=== PATIENT | female | born 1945 | race Caucasian/White ===

== ENCOUNTER 2017-03-17 09:08 | Inpatient (IN) | payer MEDICARE ==
[~2017-03-17] VITALS: Ht 172.7 cm; Wt 86.4 kg
[~2017-03-17 09:08] MED LIST: BUPR150T18 PO; Ciprofloxacin PO; HYDR-3498 PO; LOSA1TAB19 PO; METF500T4 PO; SITA50TA2 PO
[2017-03-17] MEDS ORDERED: VANCOMYCIN 1 GM (PMX) 250 ML IVPB STA (10:32)
[2017-03-17] MEDS ORDERED: PIPER-TAZO 3.375 GM IV (PMX) 100 ML IVPB STA (10:32)
[2017-03-17 11:17] LABS: ADD SCAN DIFF NO
--- NOTE | 2017-03-17 11:25 | RADRPT ---
PROCEDURE: XR Chest. CLINICAL INDICATION: Sepsis TECHNIQUE: Anterior chest x-ray. COMPARISON: None. FINDINGS: Exam is limited due to rotated positioning. The lungs are clear. No pleural effusion identified. There is no evidence of pneumothorax. The cardiomediastinal silhouette is unremarkable. The soft tissues are normal. Osseous structures are unremarkable. IMPRESSION: 1. No acute disease is seen in the chest. RPTAT: QQ .Feliciano Payne MD, MD Date Time Electronically viewed and signed by .Feliciano Payne MD, on 03/17/2017 11:25 .M/
[2017-03-17 11:28] LABS: BASOPHIL # 0.1 10^3/ul (0.0-0.1); BASOPHILS % 0.5 % (0.0-2.0); EOSINOPHILS # 0.2 10^3/ul (0.0-0.5); EOSINOPHILS % 1.6 % (0.0-7.0); HEMATOCRIT 34.4 % (37.0-47.0); HEMOGLOBIN 11.1 g/dl (12.0-16.0); LYMPHOCYTES # 0.9 10^3/ul (0.8-2.9); LYMPHOCYTES % 8.3 % (15.0-51.0); MEAN CORPUSCULAR HGB CONC 32.3 g/dl (32.0-37.0); MEAN CORPUSCULAR VOLUME 86.6 fl (82.0-101.0); MEAN PLATELET VOLUME 12.2 fl (7.4-10.4); MONOCYTE # 1.1 10^3/ul (0.3-0.9); MONOCYTES % 10.1 % (0.0-11.0); NEUTROPHIL # 8.8 10^3/ul (1.6-7.5); NEUTROPHILS % 79.1 % (39.0-77.0); PLATELET COUNT 174 10^3/UL (140-415); RED BLOOD COUNT 3.97 10^6/ul (4.20-5.40); RED CELL DISTRIBUTION WIDTH 13.1 % (11.5-14.5); WHITE BLOOD COUNT 11.2 10^3/ul (4.8-10.8)
[2017-03-17 11:29] LABS: ALBUMIN 4.3 g/dl (3.3-4.9); CHLORIDE 102 mmol/L (97-110); SODIUM 141 mmol/L (135-144)
[2017-03-17 11:30] LABS: POTASSIUM 3.8 mmol/L (3.5-5.1)
[2017-03-17 11:32] LABS: ALANINE AMINOTRANSFERASE 26 IU/L (13-69); ALBUMIN/GLOBULIN RATIO 1.22; ALKALINE PHOSPHATASE 90 IU/L (42-121); ANION GAP 17 (8-16); ASPARTATE AMINO TRANSFERASE 20 IU/L (15-46); BILIRUBIN,INDIRECT 0.4 mg/dl (0-1.1); BILIRUBIN,TOTAL 0.4 mg/dl (0.2-1.3); BLOOD UREA NITROGEN 19 mg/dl (7-20); CARBON DIOXIDE 26 mmol/L (21-31); CREATININE 0.98 mg/dl (0.44-1.00); TOTAL PROTEIN 7.8 g/dl (6.1-8.1)
[2017-03-17 11:32] LABS: INR 1.03; PROTIME 13.5 Sec (12.2-14.2); PT RATIO 1.1
[2017-03-17 11:33] LABS: CALCIUM 10.2 mg/dl (8.4-10.2); GLUCOSE 179 mg/dl (70-220)
[2017-03-17 11:33] LABS: PARTIAL THROMBOPLASTIN TIME 39.7 Sec (25.0-35.0)
--- NOTE | 2017-03-17 11:34 | RADRPT ---
PROCEDURE: XR Foot. CLINICAL INDICATION: Infection TECHNIQUE: Three views of the left foot are available for review. COMPARISON: None available FINDINGS: No evidence of fracture. Hallux valgus deformity is noted. There is marked subluxation or dislocation at the second and third metatarsal phalangeal joints. There is bone destruction in the first through third tarsometatarsal joints with joint space narrowi ng and irregularity of the articular surfaces. Considerations include inflammatory or septic arthri tis. Mild degenerative change in the tarsal joints. Bony mineralization is normal. No soft tissue swelling over the dorsum of the forefoot. No radiopaque foreign body is identified. IMPRESSION: 1. 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 2. Moderate soft tissue swelling over the dorsum of the forefoot. 3. Hallux valgus deformity. 4. Advanced subluxation or dislocation of the left second and third metatarsal phalangeal joints. 5. Mild degenerative changes in the tarsal joints. 6. Small inferior calcaneal osteophyte. RPTAT: QQ .Feliciano Payne MD, Date Time Electronically viewed and signed by .Feliciano Payne MD, on 03/17/2017 11:34 .M/
[2017-03-17 11:49] LABS: TROPONIN-I < 0.012 ng/ml (0.00-0.12)
[2017-03-17] MEDS ORDERED: ONDANSETRON 4 MG INJ IV PRN (12:30)
[2017-03-17] MEDS ORDERED: ACETAMINOPHEN 325 MG TAB PO PRN ×2 (12:30)
[2017-03-17] MEDS ORDERED: ZOLPIDEM 5 MG TAB PO PRN (12:30)
[2017-03-17] MEDS ORDERED: DOCUSATE SODIUM 100 MG CAP PO PRN (12:30)
--- NOTE | 2017-03-17 12:41 | ERA ---
ER Documentation Chief Complaint Date/Time DATE: 03/17/17 TIME: 12:39 Chief Complaint lt 3rd toe diabetic wound HPI Patient is a 71-year-old female with diabetes and high blood pressure who presents with a toe infection. The patient has a left third toe infection which started 2-3 days ago. It has been worsening. The patient has fever and chills as well. She also has diarrhea. The patient has had no treatment as of yet. The patient's primary doctor is Dr. Nick Davis. ROS All systems reviewed and are negative except as per history of present illness. Allergies Allergies: Uncoded Allergies: SULFA (Allergy, Unknown, 03/17/17) PMhx/Soc History of Surgery: Yes (cholecystectomy,hysterectomy) Anesthesia Reaction: No Hx Neurological Disorder: No Hx Respiratory Disorders: No Hx Cardiac Disorders: Yes (htn) Hx Psychiatric Problems: No Hx Miscellaneous Medical Probl: Yes (dm) Hx Alcohol Use: No Hx Substance Use: No Hx Tobacco Use: No FmHx Family History: No diabetes Physical Exam Vitals Vital Signs Date Time Temp Pulse Resp B/P Pulse Ox O2 Delivery O2 Flow Rate FiO2 03/17/17 11:13 Nasal Cannula 03/17/17 09:12 98.2 90 18 150/69 98 Physical Exam Const: No acute distress Head: Atraumatic Eyes: Normal Conjunctiva ENT: Normal External Ears, Nose and Mouth. Neck: Full range of motion..~ No meningismus. Resp: Clear to auscultation bilaterally Cardio: Regular rate and rhythm, no murmurs Abd: Soft, non tender, non distended. Normal bowel sounds Skin: Redness to the left third toe with streaking up the dorsum of the left foot, warmth to touch, sensation is gone as the patient has diabetic neuropathy Back: No midline or flank tenderness Ext: No cyanosis, or edema Neur: Awake and alert Psych: Normal Mood and Affect Result Diagram: 03/17/17 1108 03/17/17 1032 Results 24 hrs Laboratory Tests Test 03/17/17 10:32 03/17/17 11:08 Sodium Level 141mmol/L Potassium Level 3.8mmol/L Chloride Level 102mmol/L Carbon Dioxide Level 26mmol/L Anion Gap 17 Blood Urea Nitrogen 19mg/dl Creatinine 0.98mg/dl Glucose Level 179mg/dl Calcium Level 10.2mg/dl Total Bilirubin 0.4mg/dl Direct Bilirubin 0.00mg/dl Indirect Bilirubin 0.4mg/dl Aspartate Amino Transf (AST/SGOT) 20IU/L Alanine Aminotransferase (ALT/SGPT) 26IU/L Alkaline Phosphatase 90IU/L Troponin I < 0.012ng/ml Total Protein 7.8g/dl Albumin 4.3g/dl Globulin 3.50g/dl Albumin/Globulin Ratio 1.22 White Blood Count 11.210^3/ul Red Blood Count 3.9710^6/ul Hemoglobin 11.1g/dl Hematocrit 34.4% Mean Corpuscular Volume 86.6fl Mean Corpuscular Hemoglobin 28.0pg Mean Corpuscular Hemoglobin Concent 32.3g/dl Red Cell Distribution Width 13.1% Platelet Count 55050^3/UL Mean Platelet Volume 12.2fl Neutrophils % 79.1% Lymphocytes % 8.3% Monocytes % 10.1% Eosinophils % 1.6% Basophils % 0.5% Nucleated Red Blood Cells % 0.0/100WBC Neutrophils # 8.810^3/ul Lymphocytes # 0.910^3/ul Monocytes # 1.110^3/ul Eosinophils # 0.210^3/ul Basophils # 0.110^3/ul Nucleated Red Blood Cells # 0.010^3/ul Prothrombin Time 13.5Sec Prothrombin Time Ratio 1.1 INR International Normalized Ratio 1.03 Activated Partial Thromboplast Time 39.7Sec Current Medications Medications (Trade) Dose Ordered Sig/Tita Route PRN Reason Start Time Stop Time Status Last Admin Dose Admin Vancomycin HCl 250 ml @ 125 mls/hr ONCE STAT IVPB 03/17/17 10:32 03/17/17 12:31 DC 03/17/17 11:12 Piperacillin Sod/ Tazobactam Sod (Zosyn 3.375gm/ 100 ml (Pmx)) 100 ml @ 200 mls/hr ONCE STAT IVPB 03/17/17 10:32 03/17/17 11:01 DC 03/17/17 11:12 Ondansetron HCl (Zofran Inj) 4 mg BRIDGE ORDER PRN IV NAUSEA AND/OR VOMITING 03/17/17 12:30 03/18/17 12:29 Acetaminophen (Tylenol Tab) 650 mg ER BRIDGE PRN PO MILD PAIN/FEVER 03/17/17 12:30 03/18/17 12:29 Ondansetron HCl (Zofran Tab) 4 mg Q6H PRN PO NAUSEA AND/OR VOMITING 03/17/17 12:30 UNV Acetaminophen (Tylenol Tab) 650 mg Q6H PRN PO PAIN LEVEL 1-3 OR FEVER 03/17/17 12:30 Docusate Sodium (Colace) 100 mg Q12H PRN PO CONSTIPATION 03/17/17 12:30 Zolpidem Tartrate (Ambien) 5 mg QHS PRN PO SLEEP 03/17/17 12:30 UNV Enoxaparin Sodium (Lovenox) 40 mg DAILY SC 03/18/17 09:00 Insulin Aspart (Novolog Insulin Pen) NOVOLOG *MILD* ALGORITHM WITH MEALS BEDTIME SC 03/17/17 18:00 Miscellaneous Information (* Miscellaneous Pharmacy Order) HYPOGLYCEMIA PROTOCOL w... ONCE ONCE XX 03/17/17 12:30 03/17/17 12:37 DC Miscellaneous Information (* Miscellaneous Pharmacy Order) Discontinue Glyburide, Glipizide,... ONCE ONCE XX 03/17/17 12:30 03/17/17 12:37 DC Miscellaneous Information Discontinue all previ... ONCE ONCE XX 03/17/17 12:30 03/17/17 12:37 DC Piperacillin Sod/ Tazobactam Sod (Zosyn 3.375gm/ 100 ml (Pmx)) 100 ml @ 200 mls/hr Q6 IVPB 03/17/17 18:00 UNV Procedures/MDM X-ray of the left foot shows skin swelling but no obvious osteomyelitis per radiology. X-ray of the chest is negative per radiology. Patient is a 71-year-old female presents with what appears to be an acute cellulitis of the left third toe with streaking up the foot. At this point I doubt sepsis. The patient will be given vancomycin and Zosyn empirically. There is no obvious sign of osteomyelitis at this time. I spoke with Dr. Booker who is covering for Dr. Davis. The patient will be admitted to a medical surgical bed. I do believe the patient requires inpatient admission for IV antibiotics given her age and diabetes. Departure Diagnosis: Primary Impression: Cellulitis in diabetic foot Condition: CASSIE Saleem MD Mar 17, 2017 12:41
[2017-03-17] MEDS ORDERED: ONDANSETRON 4 MG TAB PO PRN (13:00)
[2017-03-17] MEDS: PIPER-TAZO 3.375 GM IV (PMX) 100 ML IVPB SCH (18:22)
[2017-03-17 20:43] VITALS: BP 159/70; RESP 20
[2017-03-17] MEDS: INSULIN ASPART [NOVOLOG] 3 ML PEN SC SCH (21:00)
[2017-03-17 21:13] VITALS: Ht 172.7 cm; Wt 86.4 kg
[2017-03-17 22:00] VITALS: BP 129/70; PULSE 72
[2017-03-17] MEDS ORDERED: HYDROCODONE/APAP (5/325) TAB PO PRN (22:30)
[2017-03-18] MEDS: PIPER-TAZO 3.375 GM IV (PMX) 100 ML IVPB SCH ×2 (00:42→05:33)
[2017-03-18 05:27] LABS: ADD SCAN DIFF NO
[2017-03-18 05:39] LABS: BASOPHIL # 0.1 10^3/ul (0.0-0.1); BASOPHILS % 0.7 % (0.0-2.0); EOSINOPHILS # 0.4 10^3/ul (0.0-0.5); EOSINOPHILS % 4.2 % (0.0-7.0); HEMATOCRIT 32.1 % (37.0-47.0); HEMOGLOBIN 10.2 g/dl (12.0-16.0); LYMPHOCYTES # 1.5 10^3/ul (0.8-2.9); LYMPHOCYTES % 16.8 % (15.0-51.0); MEAN CORPUSCULAR HEMOGLOBIN 27.4 pg (29.0-33.0); MEAN CORPUSCULAR HGB CONC 31.8 g/dl (32.0-37.0); MEAN CORPUSCULAR VOLUME 86.3 fl (82.0-101.0); MEAN PLATELET VOLUME 12.2 fl (7.4-10.4); MONOCYTE # 0.8 10^3/ul (0.3-0.9); MONOCYTES % 8.7 % (0.0-11.0); NEUTROPHILS % 69.3 % (39.0-77.0); PLATELET COUNT 162 10^3/UL (140-415); RED BLOOD COUNT 3.72 10^6/ul (4.20-5.40); RED CELL DISTRIBUTION WIDTH 13.2 % (11.5-14.5); WHITE BLOOD COUNT 8.7 10^3/ul (4.8-10.8)
[2017-03-18 05:47] LABS: ALBUMIN 3.6 g/dl (3.3-4.9)
[2017-03-18 05:48] LABS: POTASSIUM 3.3 mmol/L (3.5-5.1)
[2017-03-18 05:50] LABS: CREATININE 0.81 mg/dl (0.44-1.00)
[2017-03-18 05:51] LABS: ALBUMIN/GLOBULIN RATIO 1.09; BILIRUBIN,INDIRECT 0.5 mg/dl (0-1.1); BILIRUBIN,TOTAL 0.5 mg/dl (0.2-1.3); CALCIUM 9.4 mg/dl (8.4-10.2); TOTAL PROTEIN 6.9 g/dl (6.1-8.1)
[2017-03-18 07:26] VITALS: BP 122/74; RESP 20
[2017-03-18] MEDS: INSULIN ASPART [NOVOLOG] 3 ML PEN SC SCH (08:00)
[2017-03-18] MEDS ORDERED: ENOXAPARIN 40 MG/0.4 ML SYG SC SCH (09:00)
== END 2017-03-18 08:40 | disposition left against medical advice (07) | DRG 639 ==
LOC: FTE 09:08 → MERGE 12:21 → PP2 12:21
PROVIDERS: ADMIT Internal Medicine; ATTEND Internal Medicine
DX: E11.628 Type 2 diabetes mellitus with other skin complications (principal); E11.40 Type 2 diabetes mellitus with diabetic neuropathy, unspecified; I10 Essential (primary) hypertension; L03.032 Cellulitis of left toe
CPT/HCPCS: 36415; 71010; 80053; 82962; 83036; 84484; 85025; 85610; 85730; 87040; 87070; 93005; 96365; 96366; 96375; 96376; J1650; J2543; J3370

== ENCOUNTER 2017-10-08 14:57 | Inpatient (IN) | payer MEDICARE ==
[~2017-10-08] VITALS: Ht 170.2 cm; Wt 83.2 kg
--- NOTE | 2017-10-08 15:30 | ERD ---
ER Documentation Chief Complaint Chief Complaint LEFT FOOT INFECTION SENT FROM [facility]. HX OF DM HPI This is a 72-year-old female with a history of poorly compliant diabetes, chronic left diabetic foot ulcer with previous issues with cellulitis of the foot who is presenting with 1-2 days of a worsening infection of that foot. She was evaluated by wound care today who wanted her to be admitted for IV antibiotics after the wound was evaluated. The patient has pain and swelling and redness to the foot. She does not endorse any other symptoms. The patient denies feeling sick recently. The patient denies fever or chills. The patient has had no headache or vision changes. The patient does not endorse neck or back pain. The patient denies lightheadedness or dizziness. The patient has had no chest pain or shortness of breath or trouble breathing. The patient denies nausea or vomiting. The patient denies abdominal pain or changes to bowel movements or urination. The patient has had no focal deficits. The patient has had no new weakness or numbness or tingling to the face or extremities. She does endorse decreased sensation to her feet. ROS All systems reviewed and are negative except as per history of present illness. Medications Home Meds Active Scripts [Ciprofloxacin] 500 MG TAB No Conflict Check, 500 MG PO BID@06,18 for 7 Days, TAB Prov:BIBI DAVIS MD- 07/27/15 Reported Medications Hydrocodone Bit-Acetaminophen* ([place]*) 5-325 Mg Tab, 1 TAB PO DAILY Y for SEVERE PAIN LEVEL 7-10, TAB 07/25/15 Bupropion Hcl* (Bupropion Hcl SR*) 150 Mg Tablet.er, 150 MG PO BID, TAB.SA 10/28/14 Metformin Hcl* (Metformin Hcl*) 500 Mg Tablet, 500 MG PO BID, TAB 10/28/14 Sitagliptin* (Januvia*) 50 Mg Tablet, 50 MG PO DAILY, TAB 10/28/14 Losartan-Hydrochlorothiazide (Losartan-HCTZ) 50-12.5 Mg Tab, 1 TAB PO DAILY, TAB 10/28/14 Allergies Allergies: Coded Allergies: Sulfa (Sulfonamide Antibiotics) (Unverified Allergy, Unknown, "Rash, throat closes, joints swollen, vomiting", 07/26/15) re-entered uncoded allergy as coded Uncoded Allergies: SULFA (Allergy, Unknown, rash, throat closes, joints swallon, vomoting, 10/01) PMhx/Soc History of Surgery: Yes (cholecystectomy, hysterectomy, kidney donation) Anesthesia Reaction: No Hx Neurological Disorder: No Hx Respiratory Disorders: No Hx Cardiac Disorders: Yes (HTN) Hx Psychiatric Problems: No Hx Miscellaneous Medical Probl: Yes (DM) Hx Alcohol Use: No Hx Substance Use: No Hx Tobacco Use: No Smoking Status: Never smoker FmHx Family History: diabetes Physical Exam Vitals Vital Signs Date Time Temp Pulse Resp B/P Pulse Ox O2 Delivery O2 Flow Rate FiO2 10/08/17 15:02 99.0 95 18 137/76 99 Physical Exam Const: No apparent distress, well-developed, well-nourished Head: Normocephalic, Atraumatic Eyes: Normal Conjunctiva. Extraocular movements intact. Pupils equal, round and reactive to light ENT: Normal External Ears, Nose and Mouth. Neck: Full range of motion. No meningismus. Resp: Clear to auscultation bilaterally, No wheezes, rales or rhonchi Cardio: Regular rate and rhythm. No murmurs, rubs or gallops Abd: Soft, non tender, non distended. Normal bowel sounds Skin: No petechiae or rashes Back: No midline tenderness. No CVA tenderness Ext: No cyanosis. Diabetic foot ulcer without purulence to the plantar aspect of the right foot just over the first and second MTP joints. Right dorsal pedal edema, erythema, induration without fluctuance or purulence. Neur: Awake and alert, oriented 4. Cranial nerves intact. No facial droop. Normal strength, sensation and coordination. Psych: Normal Mood and Affect Result Diagram: 10/08/17 1540 10/08/17 1540 Results 24 hrs Laboratory Tests Test 10/08/17 15:40 White Blood Count 9.310^3/ul Red Blood Count 4.3310^6/ul Hemoglobin 11.6g/dl Hematocrit 36.0% Mean Corpuscular Volume 83.1fl Mean Corpuscular Hemoglobin 26.8pg Mean Corpuscular Hemoglobin Concent 32.2g/dl Red Cell Distribution Width 13.6% Platelet Count 76791^3/UL Mean Platelet Volume 11.4fl Neutrophils % 75.7% Lymphocytes % 14.0% Monocytes % 6.9% Eosinophils % 2.3% Basophils % 0.6% Nucleated Red Blood Cells % 0.0/100WBC Neutrophils # 7.110^3/ul Lymphocytes # 1.310^3/ul Monocytes # 0.610^3/ul Eosinophils # 0.210^3/ul Basophils # 0.110^3/ul Nucleated Red Blood Cells # 0.010^3/ul Erythrocyte Sedimentation Rate 75mm/Hr Prothrombin Time 12.1Sec Prothrombin Time Ratio 0.9 INR International Normalized Ratio 0.90 Activated Partial Thromboplast Time 41.1Sec Sodium Level 144mmol/L Potassium Level 3.5mmol/L Chloride Level 103mmol/L Carbon Dioxide Level 26mmol/L Anion Gap 19 Blood Urea Nitrogen 27mg/dl Creatinine 1.02mg/dl Glucose Level 141mg/dl Lactic Acid Level 2.4mmol/L Calcium Level 10.2mg/dl Total Bilirubin 0.0mg/dl Direct Bilirubin 0.00mg/dl Indirect Bilirubin 0.0mg/dl Aspartate Amino Transf (AST/SGOT) 21IU/L Alanine Aminotransferase (ALT/SGPT) 28IU/L Alkaline Phosphatase 91IU/L Troponin I < 0.012ng/ml C-Reactive Protein 4.2mg/dl Total Protein 7.6g/dl Albumin 4.3g/dl Globulin 3.30g/dl Albumin/Globulin Ratio 1.30 Current Medications Medications (Trade) Dose Ordered Sig/Tita Route PRN Reason Start Time Stop Time Status Last Admin Dose Admin Sodium Chloride 2170 ml 2,170 ml BOLUS OVER 2 HOURS STAT IV* 10/08/17 17:08 10/08/17 17:10 DC 10/08/17 17:36 Vancomycin HCl 250 ml @ 125 mls/hr ONCE ONCE IVPB 10/08/17 17:30 10/08/17 19:29 Cefepime HCl (Maxipime 1gm/50 ml (Pmx)) 50 ml @ 100 mls/hr ONCE ONCE IVPB 10/08/17 17:30 10/08/17 17:59 10/08/17 17:37 Ondansetron HCl (Zofran Inj) 4 mg BRIDGE ORDER PRN IV NAUSEA AND/OR VOMITING 10/08/17 17:30 10/09/17 17:29 Acetaminophen (Tylenol Tab) 650 mg ER BRIDGE PRN PO MILD PAIN/FEVER 10/08/17 17:30 10/09/17 17:29 Procedures/[facility] MDM The patient's presentation warrants further investigation. The patient does clinically have cellulitis of the foot. She also be evaluated for osteomyelitis as well as a systemic infection. The patient is otherwise well- appearing. LABS The patient's blood work was obtained and reviewed. The patient's CBC shows no leukocytosis and no left shift. The patient is afebrile and does not appear systemically ill. That said, the patient's lactic acid is 2.4 and she does have a heart rate greater than 90. The patient has a history of poorly compliant diabetes and therefore is at risk for an immunodeficient state. I am concerned of a systemic infection. The patient is mildly anemic today, which does not need to be emergently treated. The patient's platelet count is unremarkable. The patient's CMP shows a mild anion gap metabolic acidosis, likely related to her lactic acidosis. The patient does have a mildly elevated creatinine, but this is her baseline. I do not suspect acute kidney injury beyond her chronic kidney disease. Patient does have an elevated ESR and CRP. While this is nonspecific, there is at least some concern for osteomyelitis. IMAGING XR R foot 1. Charcot foot. 2. Subluxation or dislocation of the second and third metatarsal phalangeal joints. 3. No lytic lesion to suggest osteomyelitis. Electronically viewed and signed by .Aric Grullon MD, on 10/08/2017 16:08 TREATMENT/DISPOSITION The patient has findings consistent with a systemic inflammatory response syndrome, and she does have a lactic acid at 2.4, concerning for sepsis. The patient will be treated as such. The patient was given vancomycin and cefepime in the emergency department. She also be given 30 mL/kg of IV fluids. Patient' s infectious symptoms have not stabilized and the patient is at risk of rapid decompensation. The patient will be admitted for careful hydration, antibiotic therapy, and infectious source control. Severe Sepsis criteria: Infectious source: DM Foot ulcer, Cellulitis End organ damage indicated by: Lactate > 2.0 mmol/L Sepsis Management: Time of recognition of sepsis: 1600 Within 3 hours of recognition: Blood cultures x 2 before broad-spectrum antibiotics: YES 30 ml/kg NS bolus: Completed Initial lactate: 2.4 Repeat lactate: Pending Time of recognition of septic shock: No septic shock At this time, I feel that the patient requires admission for further evaluation and management. The patient will be admitted to Dr. Davis in accordance with the patient's insurance. The patient was accepted by Dr. Davis at 5:30 PM on October 08, 2017 to a med/surg floor. The patient's blood pressure was elevated at greater than 120/80 while in the emergency department. This may be further evaluated in the hospital. Third Grade Teacher(s): None in the ER, but may need Orthopedics Outstanding Data: Culture Critical Care: Critical care time 35 minutes excluding all billable procedures Emergent fluid management while maintaining close respiratory support. Provision of immediate and broad-spectrum antibiotic therapy. Simultaneous assessment for possible sources in order to direct targeted therapy. Consideration for invasive and chemical support to prevent cardiopulmonary collapse. Disclaimer: Inadvertent spelling and grammatical errors are likely due to EHR/ dictation software use and do not reflect on the overall quality of patient care. Note that the electronic time recorded on this note does not necessarily reflect the actual time of the patient encounter. Departure Diagnosis: Primary Impression: Cellulitis of foot, right Additional Impressions: Sepsis Sepsis type: sepsis due to unspecified organism Qualified Code: A41.9 - Sepsis, due to unspecified organism Diabetic ulcer of right foot Diabetic foot ulcer location: other Diabetes mellitus type: type 2 Non- pressure ulcer stage: unspecified non-pressure ulcer stage Qualified Code: E11.621 - Diabetic ulcer of other part of right foot associated with type 2 diabetes mellitus, unspecified ulcer stage Condition: Serious TITO POLK MD Oct 08, 2017 15:30
[2017-10-08 15:59] LABS: BASOPHIL # 0.1 10^3/ul (0.0-0.1); BASOPHILS % 0.6 % (0.0-2.0); EOSINOPHILS # 0.2 10^3/ul (0.0-0.5); EOSINOPHILS % 2.3 % (0.0-7.0); HEMOGLOBIN 11.6 g/dl (12.0-16.0); LYMPHOCYTES # 1.3 10^3/ul (0.8-2.9); MEAN CORPUSCULAR HEMOGLOBIN 26.8 pg (29.0-33.0); MEAN CORPUSCULAR HGB CONC 32.2 g/dl (32.0-37.0); MEAN CORPUSCULAR VOLUME 83.1 fl (82.0-101.0); MEAN PLATELET VOLUME 11.4 fl (7.4-10.4); MONOCYTE # 0.6 10^3/ul (0.3-0.9); MONOCYTES % 6.9 % (0.0-11.0); NEUTROPHIL # 7.1 10^3/ul (1.6-7.5); NEUTROPHILS % 75.7 % (39.0-77.0); PLATELET COUNT 198 10^3/UL (140-415); RED BLOOD COUNT 4.33 10^6/ul (4.20-5.40); RED CELL DISTRIBUTION WIDTH 13.6 % (11.5-14.5); WHITE BLOOD COUNT 9.3 10^3/ul (4.8-10.8)
--- NOTE | 2017-10-08 16:09 | RADRPT ---
PROCEDURE: XR Left Foot. CLINICAL INDICATION: Left foot pain. Sepsis. TECHNIQUE: 3 views. Frontal, lateral, and oblique.. COMPARISON: None. FINDINGS: There is no fracture or dislocation. There is diffuse soft tissue swelling overlying the metatarsals and midfoot. There is a plantar calc aneal spur. There are severe degenerative changes of the midfoot and there is pes planus consistent with a Charc ot foot. There is subluxation or dislocation of the second and third metatarsal phalangeal joints. There is no lytic or blastic lesion. There is no radiopaque foreign body. IMPRESSION: 1. Charcot foot. 2. Subluxation or dislocation of the second and third metatarsal phalangeal joints. 3. No lytic lesion to suggest osteomyelitis. RPTAT: QQ .Aric Grullon MD, Date Time Electronically viewed and signed by .Aric Grullon MD, MD on 10/08/2017 16:08 .R/
[2017-10-08 16:19] LABS: INR 0.9; PROTIME 12.1 Sec (12.2-14.2); PT RATIO 0.9
[2017-10-08 16:20] LABS: PARTIAL THROMBOPLASTIN TIME 41.1 Sec (25.0-35.0)
[2017-10-08 16:25] LABS: ALANINE AMINOTRANSFERASE 28 IU/L (13-69); ALBUMIN 4.3 g/dl (3.3-4.9); ALKALINE PHOSPHATASE 91 IU/L (42-121); ANION GAP 19 (8-16); ASPARTATE AMINO TRANSFERASE 21 IU/L (15-46); BLOOD UREA NITROGEN 27 mg/dl (7-20); C-REACTIVE PROTEIN 4.2 mg/dl (0.0-0.9); CALCIUM 10.2 mg/dl (8.4-10.2); CARBON DIOXIDE 26 mmol/L (21-31); CHLORIDE 103 mmol/L (97-110); CREATININE 1.02 mg/dl (0.44-1.00); GLUCOSE 141 mg/dl (70-220); POTASSIUM 3.5 mmol/L (3.5-5.1); SODIUM 144 mmol/L (135-144); TOTAL PROTEIN 7.6 g/dl (6.1-8.1)
[2017-10-08 16:36] LABS: TROPONIN-I < 0.012 ng/ml (0.00-0.12)
[2017-10-08] MEDS ORDERED: SODIUM CHLORIDE 0.9% 1L BAG IV* STA (17:08)
[2017-10-08] MEDS ORDERED: ONDANSETRON 4 MG INJ IV PRN (17:30)
[2017-10-08] MEDS ORDERED: CEFEPIME 1GM/50 ML (PMX) 50 ML IVPB ONE (17:30)
[2017-10-08] MEDS ORDERED: VANCOMYCIN 1 GM (PMX) 250 ML IVPB ONE (17:30)
[2017-10-08] MEDS ORDERED: ACETAMINOPHEN 325 MG TAB PO PRN ×2 (17:30→18:30)
[2017-10-08] MEDS ORDERED: VANCOMYCIN IV PER PHARMACY XX SCH (18:00)
[2017-10-08] MEDS ORDERED: HYDROCODONE/APAP (5/325) TAB PO PRN (18:30)
[2017-10-08] MEDS ORDERED: hydrALAzine 20 MG INJ IV PRN (18:30)
[2017-10-08] MEDS ORDERED: GLUCOSE GEL 15 GRAM TUBE PO PRN ×2 (19:30)
[2017-10-08] MEDS ORDERED: DEXTROSE 50% 50 ML SYRINGE IV PRN ×2 (19:30)
[2017-10-08] MEDS ORDERED: GLUCOSE GEL 15 GRAM TUBE BUCCAL PRN (19:30)
[2017-10-08] MEDS ORDERED: GLUCAGON 1 MG INJ IM PRN (19:30)
[2017-10-08 19:49] VITALS: TEMP 98.7
[2017-10-08] MEDS ORDERED: GABAPENTIN 100 MG CAP PO SCH (21:00)
[2017-10-08] MEDS ORDERED: INSULIN ASPART [NOVOLOG] 3 ML PEN SC SCH ×5 (21:00)
[2017-10-08] MEDS: INSULIN ASPART [NOVOLOG] 3 ML PEN SC SCH (21:00)
--- NOTE | 2017-10-08 21:00 | HP ---
DATE OF ADMISSION: 10/08/2017 ADMITTING DIAGNOSIS: Cellulitis of the left foot. HISTORY OF PRESENT ILLNESS: The patient is a 72-year-old female with type 2 diabetes, diabetic neur opathy, hypertension, depression, hyperlipidemia, who was seen at the [facility] today. The patient was evaluated for pain, redness and swelling of the left foot, and was se nt to the emergency room for further evaluation due to the possibility of infection. The patient wa s seen in the emergency room and was felt needing admission due to cellulitis and possible sepsis wi th elevated lactic acid and sedimentation rate. The patient reports that she has had some fevers an d chills over the last couple days at home, some mild pain and increased difficulty walking. REVIEW OF SYSTEMS: Otherwise unremarkable. PAST MEDICAL HISTORY: Type 2 diabetes, diabetic neuropathy, major depression, hyperlipidemia, hyper tension. 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 FAMILY HISTORY: Father of a brain tumor. Mother of respiratory problems. Sister has had chronic kidney problems. ALLERGIES: THE PATIENT IS ALLERGIC TO SULFA. MEDICATIONS: 1. Januvia 100 mg daily. 2. Metformin 1000 mg b.i.d. 3. Losartan/HCTZ 50/12.5 mg, one daily. 4. Neurontin 300 mg at bedtime. 5. Pravastatin 20 mg daily. 6. Wellbutrin-XL 150 mg daily. SOCIAL HISTORY: The patient is a . No tobacco, no alcohol use. PHYSICAL EXAMINATION: VITAL SIGNS: T-max is 99, blood pressure 160/84, pulse of 80, respirations 16, oxygen saturation 95 % on room air. GENERAL: Well-developed, well-nourished female in no acute distress, sitting on a gurney. SKIN: There is erythema of the left foot tracking up the anterior narayan. There is a callus with miriam inage on the plantar surface of the left foot around the third toe. HEENT: EOMI, PERRLA. Oropharynx clear. NECK: No jugular venous distention, 2+ carotid upstroke without bruits. No lymphadenopathy, no thy romegaly. LUNGS: Clear to auscultation bilaterally. HEART: Regular rate and rhythm. Normal S1, S2. No murmurs, gallops or rubs noted. ABDOMEN: Moderate obesity, normoactive bowel sounds, nontender, nondistended. GENITOURINARY: Deferred. EXTREMITIES: No cyanosis, clubbing. There is 1 to 2+ left pedal edema with erythema, warmth and mi ld tenderness to palpation. NEUROLOGIC: Nonfocal except for decreased pinprick, fine touch, vibration, temperature bilateral lo wer extremities in a stocking distribution. LABORATORY EXAMINATION: White blood cell count 9.3, hemoglobin 11.6, hematocrit 36.0, platelets 198 . Sedimentation rate 75. Lactic acid is 2.5, on repeat is 1.5. Sodium 144, potassium 3.5, chlorid e 103, bicarbonate 26, BUN 27, creatinine 1.02, blood sugar of 141, calcium 10.2, total bilirubin 0. 0. Troponin of less than 0.012, C-reactive protein 4.2, albumin 4.3, ALT of 28, AST of 21. X-ray of the left foot shows Charcot foot, subluxation or dislocation of the second and third metata rsophalangeal joints. No lytic lesions to suggest osteomyelitis. There is diffuse soft tissue swel ling overlying the metatarsals and mid foot and there is a plantar calcaneal spur. IMPRESSION: The patient is a 72-year-old female with diabetes, diabetic neuropathy with C harcot joints, with swelling, redness, pain of the left foot with drainage from the callus on the lynnette ttom of her foot. The patient is being admitted to med/surg for further evaluation and treatment of her cellulitis and possible osteomyelitis. 1. Cellulitis. Will give the patient vancomycin and cefepime. Will have infectious disease evalua te the patient tomorrow to assist with antibiotic treatment. We will also order an MRI of the left foot in order to evaluate for osteomyelitis. Will keep the foot elevated and give p.r.n. [place] for pain control. 2. Diabetes. We will continue the patient's Januvia, but hold the metformin due to her lactic acid osis. Will use NovoLog sliding scale and diet. 3. Hypertension. We will continue with patient's losartan and also will give p.r.n. hydralazine if blood pressure is elevated greater than 180 or greater than 100 diastolic. 4. Hyperlipidemia. We will continue with diet and medications. 5. Depression. We will continue the patient's medications. Dictated By: BIBI SIMMS MD SR/EVI Conf#: [id number] DID#: [id number]
[2017-10-08 21:15] VITALS: BP 128/72; RESP 18
[2017-10-08] MEDS: ATORVASTATIN 10 MG TAB PO SCH (21:55)
[2017-10-08 22:14] VITALS: Ht 170.2 cm; Wt 83.2 kg
[2017-10-08] MEDS: CEFEPIME 2GM/50 ML (PMX) 50 ML IVPB SCH (23:20)
[2017-10-09 01:33] VITALS: BP 131/64; RESP 17
[2017-10-09] MEDS ORDERED: ACCU-CHEK XX SCH (02:00)
[2017-10-09] MEDS: ACCU-CHEK XX SCH (02:00)
[2017-10-09] MEDS: CEFEPIME 2GM/50 ML (PMX) 50 ML IVPB SCH ×3 (05:54→20:32)
[2017-10-09 06:09] LABS: BASOPHIL # 0.1 10^3/ul (0.0-0.1); EOSINOPHILS # 0.3 10^3/ul (0.0-0.5); EOSINOPHILS % 4.1 % (0.0-7.0); HEMOGLOBIN 10.2 g/dl (12.0-16.0); LYMPHOCYTES # 1.6 10^3/ul (0.8-2.9); LYMPHOCYTES % 26.7 % (15.0-51.0); MEAN CORPUSCULAR HEMOGLOBIN 26.6 pg (29.0-33.0); MEAN CORPUSCULAR HGB CONC 31.9 g/dl (32.0-37.0); MEAN CORPUSCULAR VOLUME 83.6 fl (82.0-101.0); MEAN PLATELET VOLUME 12.1 fl (7.4-10.4); MONOCYTE # 0.6 10^3/ul (0.3-0.9); MONOCYTES % 9.8 % (0.0-11.0); NEUTROPHIL # 3.6 10^3/ul (1.6-7.5); NEUTROPHILS % 58.1 % (39.0-77.0); PLATELET COUNT 160 10^3/UL (140-415); RED BLOOD COUNT 3.83 10^6/ul (4.20-5.40); RED CELL DISTRIBUTION WIDTH 13.4 % (11.5-14.5); WHITE BLOOD COUNT 6.1 10^3/ul (4.8-10.8)
[2017-10-09 06:49] LABS: CALCIUM 9.6 mg/dl (8.4-10.2); CREATININE 0.91 mg/dl (0.44-1.00); POTASSIUM 3.6 mmol/L (3.5-5.1)
[2017-10-09 07:34] VITALS: BP 145/60; RESP 16
[2017-10-09] MEDS: INSULIN ASPART [NOVOLOG] 3 ML PEN SC SCH ×4 (08:03→20:37)
[2017-10-09] MEDS: BUPROPION (XL) 150 MG TAB PO SCH (08:14)
[2017-10-09] MEDS: LOSARTAN 50 MG TAB PO SCH (08:14)
--- NOTE | 2017-10-09 09:08 | PN ---
DATE: 10/09/2017 SUBJECTIVE: The patient is feeling better. OBJECTIVE: VITAL SIGNS: Temperature 98.1, pulse 69, respirations 16, blood pressure 145/60, oxygen saturation 96% on room air. GENERAL: Well-developed, well-nourished female in no acute distress, lying in bed. LUNGS: Clear to auscultation bilaterally. HEART: Regular rate and rhythm. EXTREMITIES: Decreased edema and erythema of the left foot, but still with edema and erythema. LABORATORY DATA: Sodium 142, potassium 3.6, chloride 111, bicarbonate 22, BUN of 20, creatinine 0.9 1, blood sugar of 86. Hemoglobin A1c 6.0, calcium 9.6. Lactic acid 1.6. White blood cell count 6. 1, hemoglobin 10.2, hematocrit 32.0, platelets 160. ASSESSMENT AND PLAN: 1. Cellulitis/diabetic foot ulcer. The patient with some improvement in her erythema and edema tod ay. We will continue with antibiotics. We will have Dr. Guerrero from [facility] a nd Dr. Montoya from infectious disease evaluate the patient and assist with care. Patient is schedul ed for MRI to be done today to evaluate for osteomyelitis. This will dictate how long patient will need to be on antibiotics. 2. Diabetes remains stable. Continue with diet, medications and hold the metformin due to her lact ic acidosis on admission. 3. Acute renal insufficiency, improved with hydration. We will continue to monitor. 4. Hypertension, stable. Continue with medications. Dictated By: BIBI SIMMS MD SR/NTS Conf#: [id number] DID#: [id number]
--- NOTE | 2017-10-09 13:19 | CONS ---
DATE OF ADMISSION: 10/08/2017 DATE OF CONSULTATION: 10/09/2017 TYPE OF CONSULTATION: Infectious disease. REASON FOR CONSULTATION: Antibiotic management. HISTORY OF PRESENT ILLNESS: Zandra Wu is a 72-year-old female who comes in with cellulitis of the left foot. Her past problems include: 1. Adult-onset diabetes mellitus. 2. Diabetic neuropathy. 3. Hypertension. 4. Hyperlipidemia. 5. Depression. 6. Status post left foot surgery. 7. Status post multiple hammertoe surgeries of the right foot. 8. Status post ventral hernia repair. 9. Status post nephrectomy for donor kidney for her sister. 10. Status post cholecystectomy. 11. Status post total abdominal hysterectomy. 12. Status post T and A. 13. ALLERGY TO SULFA. Acutely, the patient comes in with pain, redness and swelling of the left foot. She had an elevated lactic acid, sedimentation rate, and was therefore admitted. On admission, her white count was 9.3 , hemoglobin and hematocrit 11.6 and 36, platelet count 198,000. Sed rate is 75. Lactic acid was 2 .5, repeat 1.5. BUN and creatinine 27/1.02. X-ray of the left foot shows Charcot foot, subluxation or dislocation of the second and third metata rsophalangeal joints. No lytic lesions to suggest osteomyelitis. There is diffuse soft tissue swel ling overlying the metatarsals and mid foot and there is a plantar calcaneal spur. PAST MEDICAL HISTORY: As outlined. PAST SURGICAL HISTORY: As outlined. FAMILY HISTORY: Noncontributory. SOCIAL HISTORY: She does not smoke, drink or abuse drugs. ALLERGIES: SULFA. MEDICATIONS: Per chart. REVIEW OF SYSTEMS: Noncontributory. PHYSICAL EXAMINATION: GENERAL: The patient is a well-developed, well-nourished female, alert, responsive, in no acute dis tress. VITAL SIGNS: Stable. She is afebrile. SKIN: Without generalized rash. HEENT: Within normal limits. NECK: Supple. LYMPH NODES: None palpable. CHEST: Decreased breath sounds at the bases. HEART: Without murmur or gallop. ABDOMEN: Soft, moderately obese without organosplenomegaly or masses. EXTREMITIES: Without cyanosis or clubbing. She has 1+ edema on the left foot with erythema, warmth and mild tenderness on palpation. She has erythema of the left foot tracking up to the narayan. Ther e is a callus with drainage on the plantar surface of the left foot around the third toe. IMPRESSION AND PLAN: The patient was placed on vancomycin and cefepime. An MRI of the left foot wa s ordered. We will continue her on current regimen. I will see if we can get cultures of the foot if there is drainage. Blood cultures have been ordered. I will dictate my findings to Dr. Nick Davis. Dictated By: SANNA BARTLETT MD, JD/NTS Conf#: [id number] DID#: [id number] CC: NICK DAVIS MD;*EndCC*
[2017-10-09] MEDS: VANCOMYCIN 1.25 GM in SOD CHLORIDE 0.9% 250 ML IVPB SCH (14:04)
[2017-10-09 14:19] VITALS: BP 165/70; RESP 16
--- NOTE | 2017-10-09 15:05 | RADRPT ---
PROCEDURE: MRI OF THE LEFT FOOT. CLINICAL INDICATION: Wound under the metatarsal head area and on middle toe.. TECHNIQUE: Multiple MRI images of the left foot were obtained in multiple planes utilizing multipl e pulse sequences. Images were interpreted on the high-resolution PACS system. COMPARISON: Radiographs from 10/08/2017 FINDINGS: There is a skin ulcer along the plantar aspect of the third digit over the metatarsophalangeal joint . There is a sinus tract from the skin to the bone as well with osteomyelitis involving the mid to d istal third metatarsal extending to the metatarsal head with abnormal dark T1 signal and marrow radha a. There is periosteal thickening within the third metatarsal shaft. There is dorsal dislocation of the third proximal phalanx relative to the metatarsal with a large joint effusion and synovitis. The joint effusion measures up to a 3.3 cm cranial-caudal by 1.9 cm AP by 1.3 cm transverse. There is a lso mild marrow edema with slight abnormal dark T1 signal within the base of the third proximal phal anx also suggestive of osteomyelitis. There is no evidence of osteomyelitis within the remaining digits. There is no acute fracture. There is hallux valgus deformity of the first metatarsophalangeal joint with partial thickness chond ral loss and osseous spurring. The collateral ligaments are intact. There is no significant joint ef fusion. There is also dorsal dislocation of the second proximal phalanx relative to the second metatarsal bu t no significant marrow edema. The fourth and fifth metatarsophalangeal joints are intact. There is high-grade partial thickness chondral loss in part to bone throughout the tarsometatarsal j oints with subchondral cysts and marrow edema. The osteoarthrosis is more prominent at the first and second tarsometatarsal joints in which there is prominent osseous spurring. The Lisfranc's ligament is intact. There is diffuse fatty atrophy of the muscles around the foot. There is also edema within the subcut aneous soft tissues of the dorsal foot. RPTAT: AA IMPRESSION: 1. Osteomyelitis involving the mid to distal third metatarsal with periosteal thickening suggestive of acute on chronic osteomyelitis as well as within the third proximal phalanx base with dislocation at the metatarsophalangeal joint. Skin ulcer along the plantar aspect of the third digit at the lev el of the metatarsophalangeal joint with a large joint effusion. 2. Dislocation at the second metatarsophalangeal joint but no evidence of osteomyelitis. 3. 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 4. Mild osteoarthrosis of the first metatarsophalangeal joint with hallux valgus deformity. .Isatu Marte MD, MD Date Time Electronically viewed and signed by .Isatu Marte MD, on 10/09/2017 15:05 .T/
[2017-10-09 20:00] VITALS: BP 146/66; RESP 20
[2017-10-09] MEDS: ATORVASTATIN 10 MG TAB PO SCH (20:31)
[2017-10-09] MEDS: GABAPENTIN 300 MG CAP PO SCH (20:31)
[2017-10-10] MEDS: ACCU-CHEK XX SCH ×2 (01:07→21:54)
[2017-10-10 02:05] VITALS: BP 151/64; RESP 20
[2017-10-10] MEDS: CEFEPIME 2GM/50 ML (PMX) 50 ML IVPB SCH ×3 (05:33→21:40)
[2017-10-10 06:27] LABS: BASOPHIL # 0.1 10^3/ul (0.0-0.1); BASOPHILS % 0.9 % (0.0-2.0); EOSINOPHILS # 0.2 10^3/ul (0.0-0.5); EOSINOPHILS % 3.3 % (0.0-7.0); HEMATOCRIT 32.4 % (37.0-47.0); HEMOGLOBIN 10.6 g/dl (12.0-16.0); LYMPHOCYTES # 1.4 10^3/ul (0.8-2.9); LYMPHOCYTES % 25.2 % (15.0-51.0); MEAN CORPUSCULAR HEMOGLOBIN 27.2 pg (29.0-33.0); MEAN CORPUSCULAR HGB CONC 32.7 g/dl (32.0-37.0); MEAN CORPUSCULAR VOLUME 83.1 fl (82.0-101.0); MEAN PLATELET VOLUME 11.8 fl (7.4-10.4); MONOCYTE # 0.5 10^3/ul (0.3-0.9); MONOCYTES % 9.5 % (0.0-11.0); NEUTROPHIL # 3.3 10^3/ul (1.6-7.5); NEUTROPHILS % 60.7 % (39.0-77.0); PLATELET COUNT 174 10^3/UL (140-415); RED CELL DISTRIBUTION WIDTH 13.4 % (11.5-14.5); WHITE BLOOD COUNT 5.5 10^3/ul (4.8-10.8)
[2017-10-10 07:04] LABS: CREATININE 0.77 mg/dl (0.44-1.00); POTASSIUM 3.7 mmol/L (3.5-5.1)
[2017-10-10 07:31] VITALS: BP 128/95; RESP 18
[2017-10-10] MEDS: INSULIN ASPART [NOVOLOG] 3 ML PEN SC SCH ×4 (08:05→20:13)
[2017-10-10] MEDS: BUPROPION (XL) 150 MG TAB PO SCH (08:57)
[2017-10-10] MEDS: LOSARTAN 50 MG TAB PO SCH (08:57)
--- NOTE | 2017-10-10 10:22 | PQ ---
Date/Time of Note Date/Time of Note DATE: 10/10/17 TIME: 10:15 Physician Query Documentation Clarification Dear Dr. Davis, A review of the medical record found a need for documentation clarification. H & P reflects a documentation of: 1. Cellulitis. Will give the patient vancomycin and cefepime. 2. Diabetes Please clarify if a relationship exist between Diabetes & Cellulitis. To facilitate accurate and complete coding, please amber ( x ) the suspected diagnosis that apply: ( x ) Diabetes with cellulitis ( ) Diabetes unrelated to cellulitis ( ) Others ( ) unable to determine Please clarify type of Diabetes (if known) ( ) DM type 2 ( ) DM type 1 Please provide your response by clicking edit document, making your choice ( x ), click ok/save and finally click sign. You may also document your response on your progress notes. Thank you for your time. With appreciation, Micha Shrestha RN, BSN, CCS, CCDS Clinical Bag Worker Health Information Management, [facility] and Coding Services [phone] Room # 1525 - Coding [address]~ [address] MICHA SHRESTHA Oct 10, 2017 10:22 BIBI DAVIS MD- Oct 18, 2017 15:45
[2017-10-10] MEDS: VANCOMYCIN 1.25 GM in SOD CHLORIDE 0.9% 250 ML IVPB SCH (11:35)
--- NOTE | 2017-10-10 12:48 | PN ---
Date/Time of Note Date/Time of Note DATE: 10/10/17 TIME: 12:41 Assessment/Plan VTE Prophylaxis VTE Prophylaxis Intervention: LMWH Lines/Catheters IV Catheter Type (from Nrsg): Mid Line Assessment/Plan Problems: (1) Osteomyelitis Status: Acute Comment: Antibiotic management per ID Dr. Montoya, wound culture result pending. Patient was previously on oral Zyvox for 6 weeks. (2) Cellulitis of foot, right Status: Acute Comment: On Vanco and Cefipime with resolution of lactic acidosis. (3) Diabetes mellitus Status: Chronic Comment: On Insulin coverage with stable accuchecks. (4) Renal insufficiency Status: Resolved (5) Diabetic ulcer of right foot Status: Acute Comment: Continue treatment per [facility]. Qualifiers: Diabetic foot ulcer location: other Diabetes mellitus type: type 2 Non- pressure ulcer stage: unspecified non-pressure ulcer stage Qualified Code: E11.621 - Diabetic ulcer of other part of right foot associated with type 2 diabetes mellitus, unspecified ulcer stage (6) Diabetic neuropathy Status: Chronic Comment: on gabapentin. (7) Hypertension Status: Chronic Comment: stable on losartan. (8) Depression Status: Chronic Comment: stable on Wellbutrin. Subjective 24 Hr Interval Summary Free Text/Dictation Patient awake and alert. Concerned regarding recurrence of osteomyelitis in the left toe. Exam/Review of Systems Vital Signs Vitals Vital Signs Date Time Temp Pulse Resp B/P Pulse Ox O2 Delivery O2 Flow Rate FiO2 10/10/17 07:31 98.2 71 18 128/95 97 10/08/17 19:49 Room Air Intake and Output 10/09/17 10/09/17 10/10/17 15:00 23:00 07:00 Intake Total 1180 ml 850 ml Output Total 1800 ml 1200 ml Balance -620 ml -350 ml Exam Constitutional: alert, oriented Head: normocephalic Eyes: nl conjunctiva ENMT: mucosa pink and moist, nl external ears & nose Respiratory: clear to auscultation, normal air movement Cardiovascular: regular rate and rhythm Gastrointestinal: non-tender, soft Extremities: other (Left foot dressing ) Results Result Diagram: 10/10/17 0538 10/10/17 0538 Results 24 hrs Laboratory Tests Test 10/09/17 17:36 10/09/17 20:37 10/10/17 05:38 10/10/17 07:49 Bedside Glucose 86 129 89 White Blood Count 5.5 Red Blood Count 3.90 L Hemoglobin 10.6 L Hematocrit 32.4 L Mean Corpuscular Volume 83.1 Mean Corpuscular Hemoglobin 27.2 L Mean Corpuscular Hemoglobin Concent 32.7 Red Cell Distribution Width 13.4 Platelet Count 174 Mean Platelet Volume 11.8 H Neutrophils % 60.7 Lymphocytes % 25.2 Monocytes % 9.5 Eosinophils % 3.3 Basophils % 0.9 Nucleated Red Blood Cells % 0.0 Neutrophils # 3.3 Lymphocytes # 1.4 Monocytes # 0.5 Eosinophils # 0.2 Basophils # 0.1 Nucleated Red Blood Cells # 0.0 Sodium Level 145 H Potassium Level 3.7 Chloride Level 111 H Carbon Dioxide Level 25 Anion Gap 13 Blood Urea Nitrogen 15 Creatinine 0.77 Glucose Level 92 Calcium Level 10.0 Test 10/10/17 12:00 Bedside Glucose 112 Medications Medications Current Medications Cefepime HCl (Maxipime 2gm/50 ml (Pmx)) 50 ml @ 100 mls/hr Q8 IVPB Last administered on 10/10/17 05:33; Admin Dose 100 MLS/HR; Start 10/08/17 at 23: 30 Bupropion HCl (Wellbutrin Xl) 150 mg DAILY PO Last administered on 10/10/17 08:57; Admin Dose 150 MG; Start 10/09/17 at 09:00 Losartan Potassium (Cozaar) 50 mg DAILY PO Last administered on 10/10/17 08: 57; Admin Dose 50 MG; Start 10/09/17 at 09:00 Atorvastatin Calcium (Lipitor) 10 mg QPM PO Last administered on 10/09/17 20: 31; Admin Dose 10 MG; Start 10/08/17 at 21:00 Diagnostic Test (Pha) (Accu-Chek) 1 ea 02 XX ; Start 10/09/17 at 02:00 Acetaminophen/ Hydrocodone Bitart ([place] (5/325)) 1 tab Q4H PRN PO PAIN LEVEL 6 -10; Start 10/08/17 at 18:30 Hydralazine HCl (Apresoline) 5 mg Q6H PRN IV SBP>180 OR DBP>100; Start at 18:30 Acetaminophen (Tylenol Tab) 650 mg Q6 PRN PO PAIN OR TEMP ABOVE 38C Last administered on 10/09/17 14:02; Admin Dose 650 MG; Start 10/08/17 at 18:30 Miscellaneous Information 1 ea NOTE XX ; Start 10/08/17 at 19:30 Glucose (Glutose) 15 gm Q15M PRN PO DECREASED GLUCOSE; Start 10/08/17 at 19:30 Glucose (Glutose) 22.5 gm Q15M PRN PO DECREASED GLUCOSE; Start 10/08/17 at 19: 30 Dextrose (D50w Syringe) 25 ml Q15M PRN IV DECREASED GLUCOSE; Start 10/08/17 at 19:30 Dextrose (D50w Syringe) 50 ml Q15M PRN IV DECREASED GLUCOSE; Start 10/08/17 at 19:30 Glucagon (Glucagen) 1 mg Q15M PRN IM DECREASED GLUCOSE; Start 10/08/17 at 19: 30 Glucose 15 gm 15 gm Q15M PRN BUCCAL DECREASED GLUCOSE; Start 10/08/17 at 19:30 Vancomycin HCl/ Sodium Chloride (Vancocin/NS) 250 ml @ 83.333 mls/ hr Q24H IVPB Last administered on 10/10/17 11:35; Admin Dose 83.333 MLS/HR; Start at 12:00 Gabapentin (Neurontin) 300 mg HS PO Last administered on 10/09/17 20:31; Admin Dose 300 MG; Start 10/09/17 at 21:00 Miscellaneous Information (*Rx Drug Level Order Reminder*) VANCOMYCIN TROUGH AT 1100 ONCE ONCE XX ; Start 10/11/17 at 11:00; Stop 10/11/17 at 11:01 JIMMY BRITT MD Oct 10, 2017 12:48
[2017-10-10 14:15] VITALS: BP 132/63; RESP 18
[2017-10-10] MEDS ORDERED: ENOXAPARIN 100 MG/ML SYG ONE (19:56)
[2017-10-10 20:04] VITALS: BP 154/77; PULSE 64; RESP 18
[2017-10-10] MEDS: GABAPENTIN 300 MG CAP PO SCH (20:16)
[2017-10-10] MEDS: ATORVASTATIN 10 MG TAB PO SCH (20:16)
[2017-10-10] MEDS: ENOXAPARIN 100 MG/ML SYG SC SCH (21:04)
[2017-10-11 02:00] VITALS: BP 143/64; PULSE 56; RESP 18
[2017-10-11] MEDS: CEFEPIME 2GM/50 ML (PMX) 50 ML IVPB SCH ×3 (05:45→21:15)
[2017-10-11 07:33] VITALS: BP 141/70; RESP 20
[2017-10-11] MEDS: INSULIN ASPART [NOVOLOG] 3 ML PEN SC SCH ×4 (08:07→21:13)
[2017-10-11] MEDS: BUPROPION (XL) 150 MG TAB PO SCH (08:08)
[2017-10-11] MEDS: LOSARTAN 50 MG TAB PO SCH (08:09)
--- NOTE | 2017-10-11 08:10 | PN ---
DATE: 10/10/2017 SUBJECTIVE: Patient is alert, feels good. Denies pain, discomfort. No fevers. WBC 5.5, no shift, no bands. BUN 55, creatinine 0.7. ANTIMICROBIALS: 1. Vancomycin. 2. Cefepime. DIAGNOSTICS: MRI of left foot revealed osteomyelitis, acute on chronic, as well as a large joint ef fusion. PHYSICAL EXAMINATION: GENERAL: This is a well-nourished, well-developed elderly woman who is alert, in no distress. HEENT: Head atraumatic, normocephalic. Sclerae anicteric. Buccal mucosa pink. NECK: Supple. CHEST: Rise symmetrical. Breath sounds clear. HEART: S1, S2. ABDOMEN: Soft. Bowel sounds present. EXTREMITIES: Without cyanosis. Left foot dressing intact. ASSESSMENT: 1. Left foot cellulitis, osteomyelitis with cultures [facility] grew staph species. 2. Diabetes with diabetic neuropathy. 3. Hypertension. 4. History of nephrectomy for donor kidney for the sister. 5. ALLERGY TO SULFA. PLAN: The patient remains stable. We are going to change cefepime to Rocephin, continue vancomycin . Await for podiatry evaluation and anticipate treating the patient with at least 6 weeks IV antibi otics. Dictated By: PAULA ORELLANA PIPE LINE MAINTENANCE SUPERVISOR for SANNA ARANA/EVI Conf#: [id number] DID#: [id number]
[2017-10-11] MEDS: ENOXAPARIN 100 MG/ML SYG SC SCH ×2 (08:16→21:13)
[2017-10-11] MEDS: VANCOMYCIN 1.25 GM in SOD CHLORIDE 0.9% 250 ML IVPB SCH (12:26)
--- NOTE | 2017-10-11 12:41 | PN ---
Date/Time of Note Date/Time of Note DATE: 10/11/17 TIME: 12:40 Assessment/Plan VTE Prophylaxis VTE Prophylaxis Intervention: LMWH Lines/Catheters IV Catheter Type (from Nrsg): Mid Line Assessment/Plan Assessment/Plan (1) Osteomyelitis Status: Acute Comment: Antibiotic management per ID . Patient will most likely require antibiotics for 6 weeks. (2) Cellulitis of foot, right Status: Acute Comment: On Vanco (3) Diabetes mellitus Status: Chronic Comment: On Insulin coverage with stable accuchecks. (4) Renal insufficiency Status: Resolved (5) Diabetic ulcer of right foot Status: Acute Comment: Continue treatment per [facility]. Qualifiers: Diabetic foot ulcer location: other Diabetes mellitus type: type 2 Non- pressure ulcer stage: unspecified non-pressure ulcer stage Qualified Code: E11.621 - Diabetic ulcer of other part of right foot associated with type 2 diabetes mellitus, unspecified ulcer stage (6) Diabetic neuropathy Status: Chronic Comment: on gabapentin. (7) Hypertension Status: Chronic Comment: stable on losartan. (8) Depression Status: Chronic Comment: stable on Wellbutrin. Subjective 24 Hr Interval Summary Free Text/Dictation Patient has no new complaints today. Exam/Review of Systems Vital Signs Vitals Vital Signs Date Time Temp Pulse Resp B/P Pulse Ox O2 Delivery O2 Flow Rate FiO2 10/11/17 07:33 98.0 71 20 141/70 98 10/11/17 02:00 Room Air Intake and Output 10/10/17 10/10/17 10/11/17 15:00 23:00 07:00 Intake Total 250 ml 1500 ml 410 ml Output Total 1800 ml 1000 ml Balance 250 ml -300 ml -590 ml Exam Psych: nl mood/affect, no complaints Head: atraumatic, normocephalic Eyes: nl conjunctiva, nl sclera Respiratory: clear to auscultation, normal air movement Cardiovascular: regular rate and rhythm Gastrointestinal: non-tender, soft Extremities: other (Left foot and toe dressing clean and dry) Results Result Diagram: 10/10/17 0538 10/10/17 0538 Results 24 hrs Laboratory Tests Test 10/10/17 17:15 10/10/17 20:12 10/11/17 08:06 10/11/17 10:43 Bedside Glucose 76 137 90 Vancomycin Level Trough 8.0 L Medications Medications Current Medications Cefepime HCl (Maxipime 2gm/50 ml (Pmx)) 50 ml @ 100 mls/hr Q8 IVPB Last administered on 10/11/17 05:45; Admin Dose 100 MLS/HR; Start 10/08/17 at 23: 30 Bupropion HCl (Wellbutrin Xl) 150 mg DAILY PO Last administered on 10/11/17 08:08; Admin Dose 150 MG; Start 10/09/17 at 09:00 Losartan Potassium (Cozaar) 50 mg DAILY PO Last administered on 10/11/17 08: 09; Admin Dose 50 MG; Start 10/09/17 at 09:00 Atorvastatin Calcium (Lipitor) 10 mg QPM PO Last administered on 10/10/17 20: 16; Admin Dose 10 MG; Start 10/08/17 at 21:00 Diagnostic Test (Pha) (Accu-Chek) 1 ea 02 XX ; Start 10/09/17 at 02:00 Acetaminophen/ Hydrocodone Bitart ([place] (5/325)) 1 tab Q4H PRN PO PAIN LEVEL 6 -10 Last administered on 10/10/17 19:30; Admin Dose 1 TAB; Start 10/08/17 at 18:30 Hydralazine HCl (Apresoline) 5 mg Q6H PRN IV SBP>180 OR DBP>100; Start at 18:30 Acetaminophen (Tylenol Tab) 650 mg Q6 PRN PO PAIN OR TEMP ABOVE 38C Last administered on 10/09/17 14:02; Admin Dose 650 MG; Start 10/08/17 at 18:30 Miscellaneous Information 1 ea NOTE XX ; Start 10/08/17 at 19:30 Glucose (Glutose) 15 gm Q15M PRN PO DECREASED GLUCOSE; Start 10/08/17 at 19:30 Glucose (Glutose) 22.5 gm Q15M PRN PO DECREASED GLUCOSE; Start 10/08/17 at 19: 30 Dextrose (D50w Syringe) 25 ml Q15M PRN IV DECREASED GLUCOSE; Start 10/08/17 at 19:30 Dextrose (D50w Syringe) 50 ml Q15M PRN IV DECREASED GLUCOSE; Start 10/08/17 at 19:30 Glucagon (Glucagen) 1 mg Q15M PRN IM DECREASED GLUCOSE; Start 10/08/17 at 19: 30 Glucose 15 gm 15 gm Q15M PRN BUCCAL DECREASED GLUCOSE; Start 10/08/17 at 19:30 Vancomycin HCl/ Sodium Chloride (Vancocin/NS) 250 ml @ 83.333 mls/ hr Q24H IVPB Last administered on 10/11/17 12:26; Admin Dose 83.333 MLS/HR; Start at 12:00; Stop 10/11/17 at 16:00 Gabapentin (Neurontin) 300 mg HS PO Last administered on 10/10/17 20:16; Admin Dose 300 MG; Start 10/09/17 at 21:00 Enoxaparin Sodium 85 mg 85 mg Q12 SC Last administered on 10/11/17 08:16; Admin Dose 85 MG; Start 10/10/17 at 21:00 Vancomycin HCl/ Dextrose/Water (Vancocin/D5W) 150 ml @ 75 mls/hr Q12H IVPB ; Start 10/12/17 at 01:00 JIMMY BRITT MD Oct 11, 2017 12:41
[2017-10-11 14:23] VITALS: BP 129/78; RESP 20
--- NOTE | 2017-10-11 15:12 | CONS ---
Date/Time of Note Date/Time of Note DATE: 10/11/17 TIME: 15:12 Assessment/Plan Assessment/Plan Chief Complaint/Hosp Course ID PROGRESS NOTE CURRENT ABX: DAY # => Vanco IV + Cefepime 24H INTERVAL SUMMARY * A/A/O -> doing well, tells me she is hoping to go home on PO ABX; however tells me she is s/p 6 weeks of Zyvox PO which she tolerated poorly w/N/V and decreased vision. * She current has RUXT picc, tells me she is hoping Dr. Guerrero will evaluate her for DC home. * 10/09/17 MRI Left Foot: IMPRESSION: * 1. Osteomyelitis involving the mid to distal third metatarsal with periosteal thickening suggestive of acute on chronic osteomyelitis as well as within the third proximal phalanx base with dislocation at the metatarsophalangeal joint. Skin ulcer along the plantar aspect of the third digit at the level of the metatarsophalangeal joint with a large joint effusion. * 2. Dislocation at the second metatarsophalangeal joint but no evidence of osteomyelitis. * 3. 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 * 4. Mild osteoarthrosis of the first metatarsophalangeal joint with hallux valgus deformity. * MICRO: 10/08/17 BCx (-) * 10/08/17 Foot wound Cx WOUND CULTURE Preliminary Organism 1 COAGULASE NEGATIVE STAPH QUANTITY SCGRHT Organism 2 COAGULASE NEGATIVE STAPH#2 QUANTITY SCANT GROWTH COAG NEG COAG NEG#2 M.I.C. RX M.I.C. RX --------- --- --------- --- CEFAZOLIN S S CIPROFLOXACIN >=8 R <=0.5 S CLINDAMYCIN <=0.25 S >=8 R DOXYCYCLINE R R ERYTHROMYCIN >=8 R >=8 R LEVOFLOXACIN 4 R <=0.12 S OXACILLIN <=0.25 S <=0.25 S PENICILLIN-G >=0.5 R >=0.5 R RIFAMPIN <=0.5 S <=0.5 S VANCOMYCIN 1 S <=0.5 S TRIMETHOPRIM/SULFAMETHOXAZOLE <=10 S <=10 S PHYSICAL EXAMINATION: GENERAL: VSS, afebrile, NAD HEENT: Unremarkable NECK: Supple, trach midline CHEST: Equal chest rise bilaterally, without dyspnea on observation HEART: RRR ABDOMEN: Soft, NT EXT: Warm, left foot DSG intact SKIN: No rash, no diaphoresis ID ASSESSMENT: 72 yo F admit VPH: 1. SIRS s/p early sepsis w/ low grade temps, ESR 75, CRP 4.7, lactic acid 2.4-> 1.6 2/2 #2 * 10/08/17 BCx (-) 2. Acute on chronic left foot DM infection w/osteomyelitis -> Hx of 6 weeks ABX MARCH 2017 for left foot DM osteomyelitis * 10/08/17 MRI L-Foot: Osteomyelitis involving the mid to distal third metatarsal with periosteal thickening suggestive of acute on chronic osteomyelitis as well as within the third proximal phalanx base with dislocation at the metatarsophalangeal joint. Skin ulcer along the plantar aspect of the third digit at the level of the metatarsophalangeal joint with a large joint effusion. * 12/08/16 Foot wound Cx WOUND CULTURE Preliminary Organism 1 COAGULASE NEGATIVE STAPH QUANTITY SCGRHT Organism 2 COAGULASE NEGATIVE STAPH#2 QUANTITY SCANT GROWTH 3. Diabetes w/painful DM peripheral neuropathy ( )MRSA ABX ALLERGIES: sulfa INVASIVES: PICC RUEXT CURRENT ABX: *Vanco IV + Cefepime ID RECOMMENDATIONS/PLAN: 1. Continue Vanco IV 2. Continue Cefepime -> GNR seen on gram stain, if no GNR growth anticipate change to Ceftriaxone 3. Await podiatry recs ./ Problems: Consultation Date/Type/Reason Admit Date/Time Oct 08, 2017 at 17:26 Initial Consult Date Exam/Review of Systems Vital Signs Vitals Vital Signs Date Time Temp Pulse Resp B/P Pulse Ox O2 Delivery O2 Flow Rate FiO2 10/11/17 14:23 98.6 71 20 129/78 96 10/11/17 02:00 Room Air Intake and Output 1110/10/17 10/11/17 15:00 23:00 07:00 Intake Total 250 ml 1500 ml 410 ml Output Total 1800 ml 1000 ml Balance 250 ml -300 ml -590 ml Results Result Diagram: 10/10/17 0538 10/10/17 0538 Results 24 hrs Laboratory Tests Test 10/10/17 17:15 10/10/17 20:12 10/11/17 08:06 10/11/17 10:43 Bedside Glucose 76 137 90 Vancomycin Level Trough 8.0 L Test 10/11/17 12:24 Bedside Glucose 86 Medications Medications Current Medications Cefepime HCl (Maxipime 2gm/50 ml (Pmx)) 50 ml @ 100 mls/hr Q8 IVPB Last administered on 10/11/17 05:45; Admin Dose 100 MLS/HR; Start 10/08/17 at 23: 30 Bupropion HCl (Wellbutrin Xl) 150 mg DAILY PO Last administered on 10/11/17 08:08; Admin Dose 150 MG; Start 10/09/17 at 09:00 Losartan Potassium (Cozaar) 50 mg DAILY PO Last administered on 10/11/17 08: 09; Admin Dose 50 MG; Start 10/09/17 at 09:00 Atorvastatin Calcium (Lipitor) 10 mg QPM PO Last administered on 10/10/17 20: 16; Admin Dose 10 MG; Start 10/08/17 at 21:00 Diagnostic Test (Pha) (Accu-Chek) 1 ea 02 XX ; Start 10/09/17 at 02:00 Acetaminophen/ Hydrocodone Bitart ([place] (5/325)) 1 tab Q4H PRN PO PAIN LEVEL 6 -10 Last administered on 10/10/17 19:30; Admin Dose 1 TAB; Start 10/08/17 at 18:30 Hydralazine HCl (Apresoline) 5 mg Q6H PRN IV SBP>180 OR DBP>100; Start at 18:30 Acetaminophen (Tylenol Tab) 650 mg Q6 PRN PO PAIN OR TEMP ABOVE 38C Last administered on 10/09/17 14:02; Admin Dose 650 MG; Start 10/08/17 at 18:30 Miscellaneous Information 1 ea NOTE XX ; Start 10/08/17 at 19:30 Glucose (Glutose) 15 gm Q15M PRN PO DECREASED GLUCOSE; Start 10/08/17 at 19:30 Glucose (Glutose) 22.5 gm Q15M PRN PO DECREASED GLUCOSE; Start 10/08/17 at 19: 30 Dextrose (D50w Syringe) 25 ml Q15M PRN IV DECREASED GLUCOSE; Start 10/08/17 at 19:30 Dextrose (D50w Syringe) 50 ml Q15M PRN IV DECREASED GLUCOSE; Start 10/08/17 at 19:30 Glucagon (Glucagen) 1 mg Q15M PRN IM DECREASED GLUCOSE; Start 10/08/17 at 19: 30 Glucose 15 gm 15 gm Q15M PRN BUCCAL DECREASED GLUCOSE; Start 10/08/17 at 19:30 Vancomycin HCl/ Sodium Chloride (Vancocin/NS) 250 ml @ 83.333 mls/ hr Q24H IVPB Last administered on 10/11/17 12:26; Admin Dose 83.333 MLS/HR; Start at 12:00; Stop 10/11/17 at 16:00 Gabapentin (Neurontin) 300 mg HS PO Last administered on 10/10/17 20:16; Admin Dose 300 MG; Start 10/09/17 at 21:00 Enoxaparin Sodium 85 mg 85 mg Q12 SC Last administered on 10/11/17 08:16; Admin Dose 85 MG; Start 10/10/17 at 21:00 Vancomycin HCl/ Dextrose/Water (Vancocin/D5W) 150 ml @ 75 mls/hr Q12H IVPB ; Start 10/12/17 at 01:00 JOSÉ LUIS LYNCH NP Oct 11, 2017 15:12
[2017-10-11 20:34] VITALS: BP 140/65; PULSE 62; RESP 18
[2017-10-11] MEDS: ATORVASTATIN 10 MG TAB PO SCH (20:42)
[2017-10-11] MEDS: GABAPENTIN 300 MG CAP PO SCH (20:42)
[2017-10-12] MEDS: ACCU-CHEK XX SCH (02:00)
[2017-10-12] MEDS: VANCOMYCIN 750 MG in DEXTROSE 5% 150 ML IVPB SCH ×2 (02:46→13:42)
[2017-10-12 02:50] VITALS: BP 133/61; PULSE 61; RESP 16
[2017-10-12] MEDS: CEFEPIME 2GM/50 ML (PMX) 50 ML IVPB SCH ×2 (05:23→13:05)
[2017-10-12 06:41] LABS: BASOPHIL # 0.1 10^3/ul (0.0-0.1); BASOPHILS % 0.9 % (0.0-2.0); EOSINOPHILS # 0.2 10^3/ul (0.0-0.5); EOSINOPHILS % 3.2 % (0.0-7.0); HEMATOCRIT 32.5 % (37.0-47.0); HEMOGLOBIN 10.2 g/dl (12.0-16.0); LYMPHOCYTES # 1.7 10^3/ul (0.8-2.9); MEAN CORPUSCULAR HEMOGLOBIN 26.3 pg (29.0-33.0); MEAN CORPUSCULAR HGB CONC 31.4 g/dl (32.0-37.0); MEAN CORPUSCULAR VOLUME 83.8 fl (82.0-101.0); MONOCYTE # 0.6 10^3/ul (0.3-0.9); MONOCYTES % 8.8 % (0.0-11.0); NEUTROPHIL # 4.3 10^3/ul (1.6-7.5); NEUTROPHILS % 61.7 % (39.0-77.0); PLATELET COUNT 179 10^3/UL (140-415); RED BLOOD COUNT 3.88 10^6/ul (4.20-5.40); RED CELL DISTRIBUTION WIDTH 13.3 % (11.5-14.5); WHITE BLOOD COUNT 6.9 10^3/ul (4.8-10.8)
[2017-10-12 06:55] LABS: CREATININE 0.85 mg/dl (0.44-1.00)
[2017-10-12 07:50] VITALS: BP 114/73; RESP 18
--- NOTE | 2017-10-12 08:08 | CONS ---
Date/Time of Note Date/Time of Note DATE: 10/12/17 TIME: 07:58 Assessment/Plan Assessment/Plan Problems: (1) Osteomyelitis Status: Acute (2) Cellulitis of foot, right Status: Acute (3) Diabetic ulcer of right foot Status: Acute Qualifiers: Qualified Code: E11.621 - Diabetic ulcer of other part of right foot associated with type 2 diabetes mellitus, unspecified ulcer stage (4) Diabetic neuropathy Status: Chronic (5) Hypertension Status: Chronic Additional Assessment/Plan Patient has significantly improved on IV antibiotics. Her cellulitis is resolved yet she continues to have osteomyelitis of the left third metatarsal and proximal phalanx of the third toe. My recommendation is for patient to continue IV antibiotics for at least 6 weeks under supervision of infectious disease specialist. I also highly recommend hyperbaric oxygen treatment for the patient. Although patient is improved significantly, she remains at high risk for further infection and limb loss. At this time, patient may be discharged as per foot and ankle surgery. IV antibiotics for at least 6 weeks under care of infectious disease. I have discussed this with patient in great detail and patient acknowledges understanding of the discussion and agrees to the treatment. Consultation Date/Type/Reason Admit Date/Time Oct 08, 2017 at 17:26 Date of Consultation: Oct 10, 2017 Type of Consultation: Foot and ankle surgery Reason for Consultation Left foot cellulitis with abscess Hx of Present Illness Thank you very much for involving me in the care of this patient. As you very well know this is a pleasant 73-year-old female patient who was seen by me at the amputation prevention center with worsening redness, swelling and open wound on her left foot. She was found to have ascending cellulitis of her left foot and left lower leg with an open wound on the plantar aspect of the left foot draining purulent drainage and probing to bone. Recommendation was made for patient to be admitted to the hospital for IV antibiotics and further higher level of care. Today patient reports that her redness is gone and her foot swelling is less. She says that the wound on the bottom of the foot is also closed and there is no drainage. Patient denies fever and chills today and reports no chest pain or shortness of breath. patient is currently on IV cefepime and IV vancomycin. Her past medical history include type 2 diabetes mellitus, diabetic neuropathy, major depression, hyperlipidemia, hypertension, previous infection the left foot. Past Medical History As per history of present illness. Past Surgical History As per history of present illness. Social History As per history of present illness. Smoking Status: Never smoker Exam/Review of Systems Vital Signs Vitals Vital Signs Date Time Temp Pulse Resp B/P Pulse Ox O2 Delivery O2 Flow Rate FiO2 10/12/17 07:50 98.4 68 18 114/73 97 10/12/17 02:50 Room Air Intake and Output 10/11/17 10/11/17 10/12/17 15:00 23:00 07:00 Intake Total 1990 ml 440 ml Output Total 3200 ml 2000 ml Balance -1210 ml -1560 ml Exam General appearance: Patient is moderately obese; appears to be in no acute distress, laying supine in bed. No dressing present Vascular exam: Pedal pulses: weakly palpable bilateral feet; CFT: Delayed on all toes bilaterally; TG: normal bilateral lower extremity; Edema: Significantly reduced edema of the left foot and left lower leg; VV: none noted on exam Neurological exam: Protective sensation is diminished to sharp, dull, vibratory and temperature stimuli bilaterally. Deep tendon reflexes are normal bilaterally. Negative Tinel sign Dermatological exam: Plantar left foot lesion present. No erythema noted on lower extremity exam Musculoskeletal exam: No tenderness on palpation of bilateral feet and ankles. Contracted toes noted on both feet. Planus foot type noted. 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 MRI shows osteomyelitis involving the mid to distal third metatarsal with periosteal thickening suggestive of acute or chronic osteomyelitis. The third proximal phalanx is also showing increase in signal intensity. There is dislocation of the second metatarsophalangeal joint with no evidence of osteomyelitis. Significant osteoarthrosis of the tarsometatarsal joints. Labs reviewed. Results Result Diagram: 10/12/17 0537 10/12/17 0537 Results 24 hrs Laboratory Tests Test 10/11/17 08:06 10/11/17 10:43 10/11/17 12:24 10/11/17 18:21 Bedside Glucose 90 86 80 Vancomycin Level Trough 8.0 L Test 10/11/17 20:44 10/12/17 02:53 10/12/17 05:37 Bedside Glucose 188 85 White Blood Count 6.9 # Red Blood Count 3.88 L Hemoglobin 10.2 L Hematocrit 32.5 L Mean Corpuscular Volume 83.8 Mean Corpuscular Hemoglobin 26.3 L Mean Corpuscular Hemoglobin Concent 31.4 L Red Cell Distribution Width 13.3 Platelet Count 179 Mean Platelet Volume 12.0 H Neutrophils % 61.7 Lymphocytes % 25.0 Monocytes % 8.8 Eosinophils % 3.2 Basophils % 0.9 Nucleated Red Blood Cells % 0.0 Neutrophils # 4.3 Lymphocytes # 1.7 Monocytes # 0.6 Eosinophils # 0.2 Basophils # 0.1 Nucleated Red Blood Cells # 0.0 Blood Urea Nitrogen 20 Creatinine 0.85 Medications Medications Current Medications Cefepime HCl (Maxipime 2gm/50 ml (Pmx)) 50 ml @ 100 mls/hr Q8 IVPB Last administered on 10/12/17 05:23; Admin Dose 100 MLS/HR; Start 10/08/17 at 23: 30 Bupropion HCl (Wellbutrin Xl) 150 mg DAILY PO Last administered on 10/11/17 08:08; Admin Dose 150 MG; Start 10/09/17 at 09:00 Losartan Potassium (Cozaar) 50 mg DAILY PO Last administered on 10/11/17 08: 09; Admin Dose 50 MG; Start 10/09/17 at 09:00 Atorvastatin Calcium (Lipitor) 10 mg QPM PO Last administered on 10/11/17 20: 42; Admin Dose 10 MG; Start 10/08/17 at 21:00 Diagnostic Test (Pha) (Accu-Chek) 1 ea 02 XX ; Start 10/09/17 at 02:00 Acetaminophen/ Hydrocodone Bitart ([place] (5/325)) 1 tab Q4H PRN PO PAIN LEVEL 6 -10 Last administered on 10/10/17 19:30; Admin Dose 1 TAB; Start 10/08/17 at 18:30 Hydralazine HCl (Apresoline) 5 mg Q6H PRN IV SBP>180 OR DBP>100; Start at 18:30 Acetaminophen (Tylenol Tab) 650 mg Q6 PRN PO PAIN OR TEMP ABOVE 38C Last administered on 10/09/17 14:02; Admin Dose 650 MG; Start 10/08/17 at 18:30 Miscellaneous Information 1 ea NOTE XX ; Start 10/08/17 at 19:30 Glucose (Glutose) 15 gm Q15M PRN PO DECREASED GLUCOSE; Start 10/08/17 at 19:30 Glucose (Glutose) 22.5 gm Q15M PRN PO DECREASED GLUCOSE; Start 10/08/17 at 19: 30 Dextrose (D50w Syringe) 25 ml Q15M PRN IV DECREASED GLUCOSE; Start 10/08/17 at 19:30 Dextrose (D50w Syringe) 50 ml Q15M PRN IV DECREASED GLUCOSE; Start 10/08/17 at 19:30 Glucagon (Glucagen) 1 mg Q15M PRN IM DECREASED GLUCOSE; Start 10/08/17 at 19: 30 Glucose (Glutose) 15 gm Q15M PRN BUCCAL DECREASED GLUCOSE; Start 10/08/17 at 19:30 Gabapentin (Neurontin) 300 mg HS PO Last administered on 10/11/17 20:42; Admin Dose 300 MG; Start 10/09/17 at 21:00 Enoxaparin Sodium 85 mg 85 mg Q12 SC Last administered on 10/11/17 21:13; Admin Dose 85 MG; Start 10/10/17 at 21:00 Vancomycin HCl/ Dextrose/Water (Vancocin/D5W) 150 ml @ 75 mls/hr Q12H IVPB Last administered on 10/12/17 02:46; Admin Dose 75 MLS/HR; Start 10/12/17 at 01:00 Miscellaneous Information (* Miscellaneous Pharmacy Order) OK FOR PHARMACY TO D... ONCE XX ; Start 10/11/17 at 21:00 AUGUSTO THURMAN DPM Oct 12, 2017 08:07
[2017-10-12] MEDS: INSULIN ASPART [NOVOLOG] 3 ML PEN SC SCH ×4 (08:15→20:34)
[2017-10-12] MEDS: BUPROPION (XL) 150 MG TAB PO SCH (08:32)
[2017-10-12] MEDS: LOSARTAN 50 MG TAB PO SCH (08:33)
[2017-10-12] MEDS: ENOXAPARIN 100 MG/ML SYG SC SCH ×2 (08:36→20:40)
--- NOTE | 2017-10-12 12:56 | CONS ---
Date/Time of Note Date/Time of Note DATE: 10/12/17 TIME: 12:20 Assessment/Plan Assessment/Plan Chief Complaint/Hosp Course ID PROGRESS NOTE CURRENT ABX: DAY # => Vanco IV + Cefepime 24H INTERVAL SUMMARY * Seen by Dr. Guerrero who recommended 6-weeks IV ABX due to high risk limb salvage, he also recommended O2 hyperbaric; she was hoping to go home on PO Zyvox; however * 10/09/17 MRI Left Foot: IMPRESSION: * 1. Osteomyelitis involving the mid to distal third metatarsal with periosteal thickening suggestive of acute on chronic osteomyelitis as well as within the third proximal phalanx base with dislocation at the metatarsophalangeal joint. Skin ulcer along the plantar aspect of the third digit at the level of the metatarsophalangeal joint with a large joint effusion. * 2. Dislocation at the second metatarsophalangeal joint but no evidence of osteomyelitis. * 3. 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 * 4. Mild osteoarthrosis of the first metatarsophalangeal joint with hallux valgus deformity. * MICRO: 10/08/17 BCx (-) * 10/08/17 Foot wound Cx WOUND CULTURE Final Organism 1 COAGULASE NEGATIVE STAPH QUANTITY SCGRHT Organism 2 COAGULASE NEGATIVE STAPH#2 QUANTITY SCANT GROWTH Organism 3 CORYNEBACTERIUM SPECIES QUANTITY 1+ COAG NEG COAG NEG#2 M.I.C. RX M.I.C. RX --------- --- --------- --- CEFAZOLIN S S CIPROFLOXACIN >=8 R <=0.5 S CLINDAMYCIN <=0.25 S >=8 R DOXYCYCLINE R R ERYTHROMYCIN >=8 R >=8 R LEVOFLOXACIN 4 R <=0.12 S OXACILLIN <=0.25 S <=0.25 S PENICILLIN-G >=0.5 R >=0.5 R RIFAMPIN <=0.5 S <=0.5 S VANCOMYCIN 1 S <=0.5 S TRIMETHOPRIM/SULFAMETHOXAZOLE <=10 S <=10 S CORYN SPS Zone Size RX --------- --- * AMPICILLIN S * CEFAZOLIN S * CEFOTAXIME S * CEFUROXIME S * CIPROFLOXACIN R * CLINDAMYCIN S * ERYTHROMYCIN S * PENICILLIN S * VANCOMYCIN S PHYSICAL EXAMINATION: GENERAL: VSS, afebrile, NAD HEENT: Unremarkable NECK: Supple, trach midline CHEST: Equal chest rise bilaterally, without dyspnea on observation HEART: RRR ABDOMEN: Soft, NT EXT: Warm, left foot DSG intact SKIN: No rash, no diaphoresis ID ASSESSMENT: 72 yo F admit VPH: 1. SIRS s/p early sepsis w/ low grade temps, ESR 75, CRP 4.7, lactic acid 2.4-> 1.6 2/ #2 * 10/08/17 BCx (-) 2. Acute on chronic left foot DM infection w/osteomyelitis -> Hx of 6 weeks ABX MARCH 2017 for left foot DM osteomyelitis * 10/08/17 MRI L-Foot: Osteomyelitis involving the mid to distal third metatarsal with periosteal thickening suggestive of acute on chronic osteomyelitis as well as within the third proximal phalanx base with dislocation at the metatarsophalangeal joint. Skin ulcer along the plantar aspect of the third digit at the level of the metatarsophalangeal joint with a large joint effusion. * 10/08/17 Foot wound Cx WOUND CULTURE Final Organism 1 COAGULASE NEGATIVE STAPH QUANTITY SCGRHT Organism 2 COAGULASE NEGATIVE STAPH#2 QUANTITY SCANT GROWTH Organism 3 CORYNEBACTERIUM SPECIES QUANTITY 1+ 3. s/p 6 weeks po Zyvox for 03/18/17 left foot wound/osteomyelitis w/wound cx WOUND CULTURE Final Organism 1 COAGULASE NEGATIVE STAPH QUANTITY 2+ Organism 2 ENTEROCOCCUS SPECIES QUANTITY 1+ Organism 3 GAMMA HEMOLYTIC STREP SPP QUANTITY 2+ Organism 4 ALPHA HEMOLYTIC STREP SPP QUANTITY 2+ . VIRIDANS GROUP 4. Diabetes w/painful DM peripheral neuropathy ( )MRSA ABX ALLERGIES: sulfa INVASIVES: PICC RUEXT CURRENT ABX: *Vanco IV + Cefepime ID RECOMMENDATIONS/PLAN: 1. I called Dr. Montoya and read him Dr. Guerrero's recs for IV ABX x 6-weeks + hyperbaric O2. 2. Per Dr. Montoya, he prefers to send her out on both Vanco IV continued dose per pharmacy + Ceftriaxone 1gm IV daily x 42 days. * Rationale: She failed prior 6 week course of po Zyvox, her 03/18/17 osteomyelitis w/Enterococcus and Strep, current pathogens with CoNS sensitive to both Vanco IV + Ceftriaxone. 3. Patient given update on Dr. Montoya's recommendations and concurs, she was hoping for PO ABX; however she is at risk for recurrent infection w/further loss of limb/function. FINAL DC ABX RECOMMENDATIONS ABX INDICATION: Recurrent left foot diabetic infection w/osteomyelitis 1. PICC line care per RN protocol, may DC PICC line on last day of ABX IV Rx = 11/20/2017 2. Ceftriaxone 1gm IVPB daily until last day 11/20/16 3. Vancomycin 750mg IV Q12H w/continued dose per clinical pharmacist until last date 11/20/16 * BASELINES: * WT 83.2kg/BSA 2.00m2 * Baseline BUN/S.Creatinine: 10/08 27/1.02-> 10/09 20/0.91 -> 10/10 15/0.77 -> 10/12 20/0.85 * VANCO START DATE: Vanco 1 gm IV x1 10/08/17 @ 1700 * 10/09/17 Vanco IV 1.25gm Q24H on 10/09 @ 1200 -> thru 10/11 @ 1600 * 10/11/17 Vanco trough level @ 10:43 = 8.0L * Vanco 750mg IV Q12H started 10/12/17 0246 -> Next dose due 10/12/17 1400 (?) ./ Problems: Consultation Date/Type/Reason Admit Date/Time Oct 08, 2017 at 17:26 Type of Consultation: ID Exam/Review of Systems Vital Signs Vitals Vital Signs Date Time Temp Pulse Resp B/P Pulse Ox O2 Delivery O2 Flow Rate FiO2 10/12/17 07:50 98.4 68 18 114/73 97 10/12/17 02:50 Room Air Intake and Output 10/11/17 10/11/17 10/12/17 15:00 23:00 07:00 Intake Total 1990 ml 440 ml Output Total 3200 ml 2000 ml Balance -1210 ml -1560 ml Results Result Diagram: 10/12/17 0537 10/12/1737 Results 24 hrs Laboratory Tests Test 10/11/17 12:24 10/11/17 18:21 10/11/17 20:44 10/12/17 02:53 Bedside Glucose 86 80 188 85 Test 10/12/17 05:37 10/12/17 08:31 10/12/17 12:08 White Blood Count 6.9 # Red Blood Count 3.88 L Hemoglobin 10.2 L Hematocrit 32.5 L Mean Corpuscular Volume 83.8 Mean Corpuscular Hemoglobin 26.3 L Mean Corpuscular Hemoglobin Concent 31.4 L Red Cell Distribution Width 13.3 Platelet Count 179 Mean Platelet Volume 12.0 H Neutrophils % 61.7 Lymphocytes % 25.0 Monocytes % 8.8 Eosinophils % 3.2 Basophils % 0.9 Nucleated Red Blood Cells % 0.0 Neutrophils # 4.3 Lymphocytes # 1.7 Monocytes # 0.6 Eosinophils # 0.2 Basophils # 0.1 Nucleated Red Blood Cells # 0.0 Blood Urea Nitrogen 20 Creatinine 0.85 Bedside Glucose 100 132 Medications Medications Current Medications Cefepime HCl (Maxipime 2gm/50 ml (Pmx)) 50 ml @ 100 mls/hr Q8 IVPB Last administered on 10/12/17 05:23; Admin Dose 100 MLS/HR; Start 10/08/17 at 23: 30 Bupropion HCl (Wellbutrin Xl) 150 mg DAILY PO Last administered on 10/12/17 08:32; Admin Dose 150 MG; Start 10/09/17 at 09:00 Losartan Potassium (Cozaar) 50 mg DAILY PO Last administered on 10/12/17 08: 33; Admin Dose 50 MG; Start 10/09/17 at 09:00 Atorvastatin Calcium (Lipitor) 10 mg QPM PO Last administered on 10/11/17 20: 42; Admin Dose 10 MG; Start 10/08/17 at 21:00 Diagnostic Test (Pha) (Accu-Chek) 1 ea 02 XX ; Start 10/09/17 at 02:00 Acetaminophen/ Hydrocodone Bitart ([place] (5/325)) 1 tab Q4H PRN PO PAIN LEVEL 6 -10 Last administered on 10/10/17 19:30; Admin Dose 1 TAB; Start 10/08/17 at 18:30 Hydralazine HCl (Apresoline) 5 mg Q6H PRN IV SBP>180 OR DBP>100; Start at 18:30 Acetaminophen (Tylenol Tab) 650 mg Q6 PRN PO PAIN OR TEMP ABOVE 38C Last administered on 10/09/17 14:02; Admin Dose 650 MG; Start 10/08/17 at 18:30 Miscellaneous Information 1 ea NOTE XX ; Start 10/08/17 at 19:30 Glucose (Glutose) 15 gm Q15M PRN PO DECREASED GLUCOSE; Start 10/08/17 at 19:30 Glucose (Glutose) 22.5 gm Q15M PRN PO DECREASED GLUCOSE; Start 10/08/17 at 19: 30 Dextrose (D50w Syringe) 25 ml Q15M PRN IV DECREASED GLUCOSE; Start 10/08/17 at 19:30 Dextrose (D50w Syringe) 50 ml Q15M PRN IV DECREASED GLUCOSE; Start 10/08/17 at 19:30 Glucagon (Glucagen) 1 mg Q15M PRN IM DECREASED GLUCOSE; Start 10/08/17 at 19: 30 Glucose (Glutose) 15 gm Q15M PRN BUCCAL DECREASED GLUCOSE; Start 10/08/17 at 19:30 Gabapentin (Neurontin) 300 mg HS PO Last administered on 10/11/17 20:42; Admin Dose 300 MG; Start 10/09/17 at 21:00 Enoxaparin Sodium 85 mg 85 mg Q12 SC Last administered on 10/12/17 08:36; Admin Dose 85 MG; Start 10/10/17 at 21:00 Vancomycin HCl/ Dextrose/Water (Vancocin/D5W) 150 ml @ 75 mls/hr Q12H IVPB Last administered on 10/12/17 02:46; Admin Dose 75 MLS/HR; Start 10/12/17 at 01:00 Miscellaneous Information (* Miscellaneous Pharmacy Order) OK FOR PHARMACY TO D... ONCE XX ; Start 10/11/17 at 21:00 JOSÉ LUIS LYNCH NP Oct 12, 2017 12:32
--- NOTE | 2017-10-12 13:19 | PN ---
Date/Time of Note Date/Time of Note DATE: 10/12/17 TIME: 13:19 Assessment/Plan VTE Prophylaxis VTE Prophylaxis Intervention: LMWH Lines/Catheters IV Catheter Type (from Nrsg): Mid Line Assessment/Plan Problems: (1) Osteomyelitis Status: Acute Comment: Agree with plans for Vanco and Rocephin IV for 6 weeks. Will order for PICC line today. Case management consult to coordinate IV meds and home health nurse on discharge. (2) Diabetic ulcer of right foot Status: Acute Comment: Patient informed regarding recommendation for hyperbaric oxygen treatment at [facility]. Qualifiers: Diabetic foot ulcer location: other Diabetes mellitus type: type 2 Non- pressure ulcer stage: unspecified non-pressure ulcer stage Qualified Code: E11.621 - Diabetic ulcer of other part of right foot associated with type 2 diabetes mellitus, unspecified ulcer stage (3) Diabetes mellitus Status: Chronic Comment: Stable. (4) Renal insufficiency Status: Acute Comment: Recheck bmp on Vancomycin. (5) Anemia Status: Acute Comment: Probably due to chronic disease but will check iron profile. Subjective 24 Hr Interval Summary Free Text/Dictation No new complaints. Exam/Review of Systems Vital Signs Vitals Vital Signs Date Time Temp Pulse Resp B/P Pulse Ox O2 Delivery O2 Flow Rate FiO2 10/12/17 07:50 98.4 68 18 114/73 97 10/12/17 02:50 Room Air Intake and Output 10/11/17 10/11/17 10/12/17 14:59 22:59 06:59 Intake Total 1990 ml 440 ml Output Total 3200 ml 2000 ml Balance -1210 ml -1560 ml Exam Constitutional: alert, oriented Head: atraumatic, normocephalic ENMT: mucosa pink and moist, nl external ears & nose Respiratory: clear to auscultation, normal air movement Cardiovascular: nl pulses, regular rate and rhythm Gastrointestinal: non-tender, soft Extremities: normal pulses (Left 2nd and 3rd toe deformity, mild erythema at base of 3rd toe. plantar callous with 1cm surrounding erythema.) Results Result Diagram: 10/12/17 0537 10/12/17 0537 Results 24 hrs Laboratory Tests Test 10/11/17 18:21 10/11/17 20:44 10/12/17 02:53 10/12/17 05:37 Bedside Glucose 80 188 85 White Blood Count 6.9 # Red Blood Count 3.88 L Hemoglobin 10.2 L Hematocrit 32.5 L Mean Corpuscular Volume 83.8 Mean Corpuscular Hemoglobin 26.3 L Mean Corpuscular Hemoglobin Concent 31.4 L Red Cell Distribution Width 13.3 Platelet Count 179 Mean Platelet Volume 12.0 H Neutrophils % 61.7 Lymphocytes % 25.0 Monocytes % 8.8 Eosinophils % 3.2 Basophils % 0.9 Nucleated Red Blood Cells % 0.0 Neutrophils # 4.3 Lymphocytes # 1.7 Monocytes # 0.6 Eosinophils # 0.2 Basophils # 0.1 Nucleated Red Blood Cells # 0.0 Blood Urea Nitrogen 20 Creatinine 0.85 Test 10/12/17 08:31 10/12/17 12:08 Bedside Glucose 100 132 Medications Medications Current Medications Cefepime HCl (Maxipime 2gm/50 ml (Pmx)) 50 ml @ 100 mls/hr Q8 IVPB Last administered on 10/12/17 13:05; Admin Dose 100 MLS/HR; Start 10/08/17 at 23: 30 Bupropion HCl (Wellbutrin Xl) 150 mg DAILY PO Last administered on 10/12/17 08:32; Admin Dose 150 MG; Start 10/09/17 at 09:00 Losartan Potassium (Cozaar) 50 mg DAILY PO Last administered on 10/12/17 08: 33; Admin Dose 50 MG; Start 10/09/17 at 09:00 Atorvastatin Calcium (Lipitor) 10 mg QPM PO Last administered on 10/11/17 20: 42; Admin Dose 10 MG; Start 10/08/17 at 21:00 Diagnostic Test (Pha) (Accu-Chek) 1 ea 02 XX ; Start 10/09/17 at 02:00 Acetaminophen/ Hydrocodone Bitart ([place] (5/325)) 1 tab Q4H PRN PO PAIN LEVEL 6 -10 Last administered on 10/10/17 19:30; Admin Dose 1 TAB; Start 10/08/17 at 18:30 Hydralazine HCl (Apresoline) 5 mg Q6H PRN IV SBP>180 OR DBP>100; Start at 18:30 Acetaminophen (Tylenol Tab) 650 mg Q6 PRN PO PAIN OR TEMP ABOVE 38C Last administered on 10/09/17 14:02; Admin Dose 650 MG; Start 10/08/17 at 18:30 Miscellaneous Information 1 ea NOTE XX ; Start 10/08/17 at 19:30 Glucose (Glutose) 15 gm Q15M PRN PO DECREASED GLUCOSE; Start 10/08/17 at 19:30 Glucose (Glutose) 22.5 gm Q15M PRN PO DECREASED GLUCOSE; Start 10/08/17 at 19: 30 Dextrose (D50w Syringe) 25 ml Q15M PRN IV DECREASED GLUCOSE; Start 10/08/17 at 19:30 Dextrose (D50w Syringe) 50 ml Q15M PRN IV DECREASED GLUCOSE; Start 10/08/17 at 19:30 Glucagon (Glucagen) 1 mg Q15M PRN IM DECREASED GLUCOSE; Start 10/08/17 at 19: 30 Glucose (Glutose) 15 gm Q15M PRN BUCCAL DECREASED GLUCOSE; Start 10/08/17 at 19:30 Gabapentin (Neurontin) 300 mg HS PO Last administered on 10/11/17 20:42; Admin Dose 300 MG; Start 10/09/17 at 21:00 Enoxaparin Sodium 85 mg 85 mg Q12 SC Last administered on 10/12/17 08:36; Admin Dose 85 MG; Start 10/10/17 at 21:00 Vancomycin HCl/ Dextrose/Water (Vancocin/D5W) 150 ml @ 75 mls/hr Q12H IVPB Last administered on 10/12/17 02:46; Admin Dose 75 MLS/HR; Start 10/12/17 at 01:00 Miscellaneous Information (* Miscellaneous Pharmacy Order) OK FOR PHARMACY TO D... ONCE XX ; Start 10/11/17 at 21:00 Miscellaneous Information (*Rx Drug Level Order Reminder*) VANCOMYCIN TROUGH AT 1200 ONCE ONCE XX ; Start 10/13/17 at 12:00; Stop 10/13/17 at 12:01 JIMMY BRITT MD Oct 12, 2017 13:19
[2017-10-12] MEDS ORDERED: CEFTRIAXONE 1 GM/50 ML (PMX) 50 ML IVPB ONE (13:30)
[2017-10-12 13:50] VITALS: BP 130/75; RESP 18
[2017-10-12] MEDS ORDERED: LIDOCAINE 1% (MPF) 5 ML VIAL SC ONE (15:00)
[2017-10-12 19:21] VITALS: BP 140/65; RESP 20
[2017-10-12] MEDS: ATORVASTATIN 10 MG TAB PO SCH (20:34)
[2017-10-12] MEDS: GABAPENTIN 300 MG CAP PO SCH (20:34)
[2017-10-13] MEDS: VANCOMYCIN 750 MG in DEXTROSE 5% 150 ML IVPB SCH ×2 (00:53→13:19)
[2017-10-13 01:52] VITALS: BP 130/61; RESP 20
[2017-10-13] MEDS: ACCU-CHEK XX SCH (02:00)
[2017-10-13 06:44] LABS: BASOPHIL # 0.1 10^3/ul (0.0-0.1); BASOPHILS % 1.6 % (0.0-2.0); EOSINOPHILS # 0.2 10^3/ul (0.0-0.5); EOSINOPHILS % 3.3 % (0.0-7.0); HEMATOCRIT 34.5 % (37.0-47.0); HEMOGLOBIN 10.8 g/dl (12.0-16.0); LYMPHOCYTES # 1.9 10^3/ul (0.8-2.9); LYMPHOCYTES % 30.6 % (15.0-51.0); MEAN CORPUSCULAR HEMOGLOBIN 26.2 pg (29.0-33.0); MEAN CORPUSCULAR HGB CONC 31.3 g/dl (32.0-37.0); MEAN CORPUSCULAR VOLUME 83.7 fl (82.0-101.0); MEAN PLATELET VOLUME 12.1 fl (7.4-10.4); MONOCYTE # 0.6 10^3/ul (0.3-0.9); MONOCYTES % 9.5 % (0.0-11.0); NEUTROPHIL # 3.4 10^3/ul (1.6-7.5); NEUTROPHILS % 54.5 % (39.0-77.0); PLATELET COUNT 168 10^3/UL (140-415); RED BLOOD COUNT 4.12 10^6/ul (4.20-5.40); RED CELL DISTRIBUTION WIDTH 13.3 % (11.5-14.5); WHITE BLOOD COUNT 6.3 10^3/ul (4.8-10.8)
[2017-10-13 07:06] LABS: CALCIUM 10.5 mg/dl (8.4-10.2); CREATININE 0.78 mg/dl (0.44-1.00); POTASSIUM 4.2 mmol/L (3.5-5.1)
[2017-10-13 07:23] LABS: IRON 54 ug/dl (35-150)
[2017-10-13 07:32] LABS: TOTAL IRON BINDING CAPACITY 271 ug/dl (241-421)
[2017-10-13 07:34] LABS: THYROID STIMULATING HORMONE 1.42 MIU/L (0.465-4.680)
[2017-10-13 07:53] VITALS: BP 112/72; RESP 18
[2017-10-13 08:11] LABS: FOLATE 8.6 ng/ml (2.8-20.0)
[2017-10-13] MEDS: BUPROPION (XL) 150 MG TAB PO SCH (08:12)
[2017-10-13] MEDS: LOSARTAN 50 MG TAB PO SCH (08:13)
[2017-10-13] MEDS: INSULIN ASPART [NOVOLOG] 3 ML PEN SC SCH ×4 (08:15→20:34)
[2017-10-13] MEDS: ENOXAPARIN 100 MG/ML SYG SC SCH ×2 (08:19→20:38)
--- NOTE | 2017-10-13 10:46 | PN ---
Date/Time of Note Date/Time of Note DATE: 10/13/17 TIME: 10:46 Assessment/Plan VTE Prophylaxis VTE Prophylaxis Intervention: LMWH Lines/Catheters IV [facility]from [facility] Mid Line Central line still needed: Yes Urinary Cath still in place: No Assessment/Plan Assessment/Plan (1) Osteomyelitis Status: Acute Comment: Need Vanco and Rocephin IV for 6 weeks. Await PICC line placement. Plan discharge to SNF tomorrow with daughter picking up patient. (2) Diabetic ulcer of right foot Status: Acute Comment: Patient informed regarding recommendation for hyperbaric oxygen treatment at [facility]. Qualifiers: Diabetic foot ulcer location: other Diabetes mellitus type: type 2 Non- pressure ulcer stage: unspecified non-pressure ulcer stage Qualified Code: E11.621 - Diabetic ulcer of other part of right foot associated with type 2 diabetes mellitus, unspecified ulcer stage (3) Diabetes mellitus Status: Chronic Comment: Stable. (4) Renal insufficiency Status: Acute Comment: Recheck bmp on Vancomycin. (5) Anemia Status: Acute Comment: Blood test consistent with anemia of chronic disease . Subjective 24 Hr Interval Summary Free Text/Dictation Patient awake and alert. Awaiting PICC. Would prefer to go to SNF to receive the 6 weeks of IV antibiotics. Exam/Review of Systems Vital Signs Vitals Vital Signs Date Time Temp Pulse Resp B/P Pulse Ox O2 Delivery O2 Flow Rate FiO2 10/13/17 07:53 97.7 72 18 112/72 96 10/12/17 02:50 Room Air Intake and Output 10/12/17 10/12/17 10/13/17 15:00 23:00 07:00 Intake Total 50 ml 1400 ml 150 ml Output Total 1600 ml Balance 50 ml -200 ml 150 ml Exam No current complaints. Constitutional: alert, oriented Head: atraumatic, normocephalic Respiratory: clear to auscultation, normal air movement Cardiovascular: nl pulses, regular rate and rhythm Gastrointestinal: non-tender, soft Musculoskeletal: other (L foot plantar eschar , no erythema.) Results Result Diagram: 10/13/17 0536 10/13/17 0536 Results 24 hrs Laboratory Tests Test 10/12/17 12:08 10/12/17 17:10 10/12/17 20:33 10/13/17 05:36 Bedside Glucose 132 91 142 White Blood Count 6.3 Red Blood Count 4.12 L Hemoglobin 10.8 L Hematocrit 34.5 L Mean Corpuscular Volume 83.7 Mean Corpuscular Hemoglobin 26.2 L Mean Corpuscular Hemoglobin Concent 31.3 L Red Cell Distribution Width 13.3 Platelet Count 168 Mean Platelet Volume 12.1 H Neutrophils % 54.5 Lymphocytes % 30.6 Monocytes % 9.5 Eosinophils % 3.3 Basophils % 1.6 Nucleated Red Blood Cells % 0.0 Neutrophils # 3.4 Lymphocytes # 1.9 Monocytes # 0.6 Eosinophils # 0.2 Basophils # 0.1 Nucleated Red Blood Cells # 0.0 Sodium Level 144 Potassium Level 4.2 Chloride Level 108 Carbon Dioxide Level 27 Anion Gap 13 Blood Urea Nitrogen 18 Creatinine 0.78 Glucose Level 101 Calcium Level 10.5 H Iron Level 54 Total Iron Binding Capacity 271 Percent Iron Saturation 20 L Vitamin B12 Level 403 Folate 8.6 Thyroid Stimulating Hormone (TSH) 1.420 Test 10/13/17 08:07 Bedside Glucose 110 Medications Medications Current Medications Bupropion HCl (Wellbutrin Xl) 150 mg DAILY PO Last administered on 10/13/17 08:12; Admin Dose 150 MG; Start 10/09/17 at 09:00 Losartan Potassium (Cozaar) 50 mg DAILY PO Last administered on 10/13/17 08: 13; Admin Dose 50 MG; Start 10/09/17 at 09:00 Atorvastatin Calcium (Lipitor) 10 mg QPM PO Last administered on 10/12/17 20: 34; Admin Dose 10 MG; Start 10/08/17 at 21:00 Diagnostic Test (Pha) (Accu-Chek) 1 ea 02 XX ; Start 10/09/17 at 02:00 Acetaminophen/ Hydrocodone Bitart ([place] (5/325)) 1 tab Q4H PRN PO PAIN LEVEL 6 -10 Last administered on 10/10/17 19:30; Admin Dose 1 TAB; Start 10/08/17 at 18:30 Hydralazine HCl (Apresoline) 5 mg Q6H PRN IV SBP>180 OR DBP>100; Start at 18:30 Acetaminophen (Tylenol Tab) 650 mg Q6 PRN PO PAIN OR TEMP ABOVE 38C Last administered on 10/09/17 14:02; Admin Dose 650 MG; Start 10/08/17 at 18:30 Miscellaneous Information 1 ea NOTE XX ; Start 10/08/17 at 19:30 Glucose (Glutose) 15 gm Q15M PRN PO DECREASED GLUCOSE; Start 10/08/17 at 19:30 Glucose (Glutose) 22.5 gm Q15M PRN PO DECREASED GLUCOSE; Start 10/08/17 at 19: 30 Dextrose (D50w Syringe) 25 ml Q15M PRN IV DECREASED GLUCOSE; Start 10/08/17 at 19:30 Dextrose (D50w Syringe) 50 ml Q15M PRN IV DECREASED GLUCOSE; Start 10/08/17 at 19:30 Glucagon (Glucagen) 1 mg Q15M PRN IM DECREASED GLUCOSE; Start 10/08/17 at 19: 30 Glucose (Glutose) 15 gm Q15M PRN BUCCAL DECREASED GLUCOSE; Start 10/08/17 at 19:30 Gabapentin (Neurontin) 300 mg HS PO Last administered on 10/12/17 20:34; Admin Dose 300 MG; Start 10/09/17 at 21:00 Enoxaparin Sodium 85 mg 85 mg Q12 SC Last administered on 10/13/17 08:19; Admin Dose 85 MG; Start 10/10/17 at 21:00 Vancomycin HCl/ Dextrose/Water (Vancocin/D5W) 150 ml @ 75 mls/hr Q12H IVPB Last administered on 10/13/17 00:53; Admin Dose 75 MLS/HR; Start 10/12/17 at 01:00 Miscellaneous Information (* Miscellaneous Pharmacy Order) OK FOR PHARMACY TO D... ONCE XX ; Start 10/11/17 at 21:00 Miscellaneous Information (*Rx Drug Level Order Reminder*) VANCOMYCIN TROUGH AT 1200 ONCE ONCE XX ; Start 10/13/17 at 12:00; Stop 10/13/17 at 12:01 JIMMY BRITT MD Oct 13, 2017 10:46
[2017-10-13 14:08] VITALS: BP 148/65; RESP 20
--- NOTE | 2017-10-13 14:34 | CONS ---
Date/Time of Note Date/Time of Note DATE: 10/13/17 TIME: 14:31 Assessment/Plan Assessment/Plan Chief Complaint/Hosp Course ID PROGRESS NOTE CURRENT ABX: DAY # => Vanco IV + Cefepime 24H INTERVAL SUMMARY * DC Planning in process w/Bat Lathe Operator-> She has many questions about this; unfortunately I explained to her once again that I have no knowledge, nor input on this process, she has been eager to return home for days, I encouraged her to be patient. * Per notes, Dr. Guerrero who recommended 6-weeks IV ABX due to high risk limb salvage, he also recommended O2 hyperbaric; she was hoping to go home on PO Zyvox; however * 10/09/17 MRI Left Foot: IMPRESSION: * 1. Osteomyelitis involving the mid to distal third metatarsal with periosteal thickening suggestive of acute on chronic osteomyelitis as well as within the third proximal phalanx base with dislocation at the metatarsophalangeal joint. Skin ulcer along the plantar aspect of the third digit at the level of the metatarsophalangeal joint with a large joint effusion. * 2. Dislocation at the second metatarsophalangeal joint but no evidence of osteomyelitis. * 3. 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 * 4. Mild osteoarthrosis of the first metatarsophalangeal joint with hallux valgus deformity. * MICRO: 10/08/17 BCx (-) * 10/08/17 Foot wound Cx WOUND CULTURE Final Organism 1 COAGULASE NEGATIVE STAPH QUANTITY SCGRHT Organism 2 COAGULASE NEGATIVE STAPH#2 QUANTITY SCANT GROWTH Organism 3 CORYNEBACTERIUM SPECIES QUANTITY 1+ COAG NEG COAG NEG#2 M.I.C. RX M.I.C. RX --------- --- --------- --- CEFAZOLIN S S CIPROFLOXACIN >=8 R <=0.5 S CLINDAMYCIN <=0.25 S >=8 R DOXYCYCLINE R R ERYTHROMYCIN >=8 R >=8 R LEVOFLOXACIN 4 R <=0.12 S OXACILLIN <=0.25 S <=0.25 S PENICILLIN-G >=0.5 R >=0.5 R RIFAMPIN <=0.5 S <=0.5 S VANCOMYCIN 1 S <=0.5 S TRIMETHOPRIM/SULFAMETHOXAZOLE <=10 S <=10 S LOBO SPS Zone Size RX --------- --- * AMPICILLIN S * CEFAZOLIN S * CEFOTAXIME S * CEFUROXIME S * CIPROFLOXACIN R * CLINDAMYCIN S * ERYTHROMYCIN S * PENICILLIN S * VANCOMYCIN S PHYSICAL EXAMINATION: GENERAL: VSS, afebrile, NAD HEENT: Unremarkable NECK: Supple, trach midline CHEST: Equal chest rise bilaterally, without dyspnea on observation HEART: RRR ABDOMEN: Soft, NT EXT: Warm, left foot DSG intact SKIN: No rash, no diaphoresis ID ASSESSMENT: 72 yo F admit [facility]: 1. SIRS s/p early sepsis w/ low grade temps, ESR 75, CRP 4.7, lactic acid 2.4-> 1.6 2/2 #2 * 10/08/17 BCx (-) 2. Acute on chronic left foot DM infection w/osteomyelitis -> Hx of 6 weeks ABX MARCH 2017 for left foot DM osteomyelitis * 10/08/17 MRI L-Foot: Osteomyelitis involving the mid to distal third metatarsal with periosteal thickening suggestive of acute on chronic osteomyelitis as well as within the third proximal phalanx base with dislocation at the metatarsophalangeal joint. Skin ulcer along the plantar aspect of the third digit at the level of the metatarsophalangeal joint with a large joint effusion. * 10/08/17 Foot wound Cx WOUND CULTURE Final Organism 1 COAGULASE NEGATIVE STAPH QUANTITY SCGRHT Organism 2 COAGULASE NEGATIVE STAPH#2 QUANTITY SCANT GROWTH Organism 3 CORYNEBACTERIUM SPECIES QUANTITY 1+ 3. s/p 6 weeks po Zyvox for 03/18/17 left foot wound/osteomyelitis w/wound cx WOUND CULTURE Final Organism 1 COAGULASE NEGATIVE STAPH QUANTITY 2+ Organism 2 ENTEROCOCCUS SPECIES QUANTITY 1+ Organism 3 GAMMA HEMOLYTIC STREP SPP QUANTITY 2+ Organism 4 ALPHA HEMOLYTIC STREP SPP QUANTITY 2+ . VIRIDANS GROUP 4. Diabetes w/painful DM peripheral neuropathy ( )MRSA ABX ALLERGIES: sulfa INVASIVES: PICC RUEXT CURRENT ABX: *Vanco IV + Cefepime ID RECOMMENDATIONS/PLAN: 1.DC Planning in process w/Bat Lathe Operator-> She has PICC line, pending arrangements as below: * Contact [facility] clinical pharmacist for future Vanco IV Dosing recommendations 2. Per Dr. Montoya, he prefers to send her out on both Vanco IV continued dose per pharmacy + Ceftriaxone 1gm IV daily x 42 days. * Rationale: She failed prior 6 week course of po Zyvox, her 03/18/17 osteomyelitis w/Enterococcus and Strep, current pathogens with CoNS sensitive to both Vanco IV + Ceftriaxone. 3. Patient given update on Dr. Montoya's recommendations and concurs, she was hoping for PO ABX; however she is at risk for recurrent infection w/further loss of limb/function. FINAL DC ABX RECOMMENDATIONS ABX INDICATION: Recurrent left foot diabetic infection w/osteomyelitis 1. PICC line care per RN protocol, may DC PICC line on last day of ABX IV Rx = 11/20/2017 2. Ceftriaxone 1gm IVPB daily until last day 11/20/16 3. Vancomycin 750mg IV Q12H w/continued dose per clinical pharmacist until last date 11/20/16 * BASELINES: * WT 83.2kg/BSA 2.00m2 * Baseline BUN/S.Creatinine: 10/08 27/1.02-> 10/09 20/0.91 -> 10/10 15/0.77 -> 10/12 20/0.85 * VANCO START DATE: Vanco 1 gm IV x1 10/08/17 @ 1700 * 10/09/17 Vanco IV 1.25gm Q24H on 10/09 @ 1200 -> thru 10/11 @ 1600 * 10/11/17 Vanco trough level @ 10:43 = 8.0L * Vanco 750mg IV Q12H started 10/12/17 0246 -> Next dose due 10/12/17 1400 (?) ./ Problems: Consultation Date/Type/Reason Admit Date/Time Oct 08, 2017 at 17:26 Type of Consultation: ID Exam/Review of Systems Vital Signs Vitals Vital Signs Date Time Temp Pulse Resp B/P Pulse Ox O2 Delivery O2 Flow Rate FiO2 10/13/17 14:08 97.8 61 20 148/65 99 10/12/17 02:50 Room Air Intake and Output 10/12/17 10/12/17 10/13/17 15:00 23:00 07:00 Intake Total 50 ml 1400 ml 150 ml Output Total 1600 ml Balance 50 ml -200 ml 150 ml Results Result Diagram: 10/13/17 0536 10/13/17 0536 Results 24 hrs Laboratory Tests Test 10/12/17 17:10 10/12/17 20:33 10/13/17 05:36 10/13/17 08:07 Bedside Glucose 91 142 110 White Blood Count 6.3 Red Blood Count 4.12 L Hemoglobin 10.8 L Hematocrit 34.5 L Mean Corpuscular Volume 83.7 Mean Corpuscular Hemoglobin 26.2 L Mean Corpuscular Hemoglobin Concent 31.3 L Red Cell Distribution Width 13.3 Platelet Count 168 Mean Platelet Volume 12.1 H Neutrophils % 54.5 Lymphocytes % 30.6 Monocytes % 9.5 Eosinophils % 3.3 Basophils % 1.6 Nucleated Red Blood Cells % 0.0 Neutrophils # 3.4 Lymphocytes # 1.9 Monocytes # 0.6 Eosinophils # 0.2 Basophils # 0.1 Nucleated Red Blood Cells # 0.0 Sodium Level 144 Potassium Level 4.2 Chloride Level 108 Carbon Dioxide Level 27 Anion Gap 13 Blood Urea Nitrogen 18 Creatinine 0.78 Glucose Level 101 Calcium Level 10.5 H Iron Level 54 Total Iron Binding Capacity 271 Percent Iron Saturation 20 L Vitamin B12 Level 403 Folate 8.6 Thyroid Stimulating Hormone (TSH) 1.420 Test 10/13/17 11:58 10/13/17 12:14 Bedside Glucose 132 Vancomycin Level Trough 14.3 Medications Medications Current Medications Bupropion HCl (Wellbutrin Xl) 150 mg DAILY PO Last administered on 10/13/17 08:12; Admin Dose 150 MG; Start 10/09/17 at 09:00 Losartan Potassium (Cozaar) 50 mg DAILY PO Last administered on 10/13/17 08: 13; Admin Dose 50 MG; Start 10/09/17 at 09:00 Atorvastatin Calcium (Lipitor) 10 mg QPM PO Last administered on 10/12/17 20: 34; Admin Dose 10 MG; Start 10/08/17 at 21:00 Diagnostic Test (Pha) (Accu-Chek) 1 ea 02 XX ; Start 10/09/17 at 02:00 Acetaminophen/ Hydrocodone Bitart ([place] (5/325)) 1 tab Q4H PRN PO PAIN LEVEL 6 -10 Last administered on 10/10/17 19:30; Admin Dose 1 TAB; Start 10/08/17 at 18:30 Hydralazine HCl (Apresoline) 5 mg Q6H PRN IV SBP>180 OR DBP>100; Start at 18:30 Acetaminophen (Tylenol Tab) 650 mg Q6 PRN PO PAIN OR TEMP ABOVE 38C Last administered on 10/09/17 14:02; Admin Dose 650 MG; Start 10/08/17 at 18:30 Miscellaneous Information 1 ea NOTE XX ; Start 10/08/17 at 19:30 Glucose (Glutose) 15 gm Q15M PRN PO DECREASED GLUCOSE; Start 10/08/17 at 19:30 Glucose (Glutose) 22.5 gm Q15M PRN PO DECREASED GLUCOSE; Start 10/08/17 at 19: 30 Dextrose (D50w Syringe) 25 ml Q15M PRN IV DECREASED GLUCOSE; Start 10/08/17 at 19:30 Dextrose (D50w Syringe) 50 ml Q15M PRN IV DECREASED GLUCOSE; Start 10/08/17 at 19:30 Glucagon (Glucagen) 1 mg Q15M PRN IM DECREASED GLUCOSE; Start 10/08/17 at 19: 30 Glucose (Glutose) 15 gm Q15M PRN BUCCAL DECREASED GLUCOSE; Start 10/08/17 at 19:30 Gabapentin (Neurontin) 300 mg HS PO Last administered on 10/12/17 20:34; Admin Dose 300 MG; Start 10/09/17 at 21:00 Enoxaparin Sodium 85 mg 85 mg Q12 SC Last administered on 10/13/17 08:19; Admin Dose 85 MG; Start 10/10/17 at 21:00 Vancomycin HCl/ Dextrose/Water (Vancocin/D5W) 150 ml @ 75 mls/hr Q12H IVPB Last administered on 10/13/17 13:19; Admin Dose 75 MLS/HR; Start 10/12/17 at 01:00 Miscellaneous Information (* Miscellaneous Pharmacy Order) OK FOR PHARMACY TO D... ONCE XX ; Start 10/11/17 at 21:00 JOSÉ LUIS LYNCH NP Oct 13, 2017 14:34
[2017-10-13 19:32] VITALS: BP 118/68; RESP 18
[2017-10-13] MEDS: GABAPENTIN 300 MG CAP PO SCH (20:31)
[2017-10-13] MEDS: ATORVASTATIN 10 MG TAB PO SCH (20:31)
[2017-10-14] MEDS: VANCOMYCIN 750 MG in DEXTROSE 5% 150 ML IVPB SCH ×4 (00:32→21:57)
[2017-10-14] MEDS: ACCU-CHEK XX SCH ×2 (01:06→23:38)
[2017-10-14 02:15] VITALS: BP 151/69; RESP 18
[2017-10-14 08:06] VITALS: BP 119/70; RESP 16
[2017-10-14] MEDS: LOSARTAN 50 MG TAB PO SCH (08:11)
[2017-10-14] MEDS: BUPROPION (XL) 150 MG TAB PO SCH (08:11)
[2017-10-14] MEDS: INSULIN ASPART [NOVOLOG] 3 ML PEN SC SCH ×4 (08:13→20:44)
[2017-10-14] MEDS: ENOXAPARIN 100 MG/ML SYG SC SCH ×2 (08:21→20:52)
[2017-10-14] MEDS ORDERED: LIDOCAINE 1% (MPF) 5 ML VIAL SC ONE (09:00)
--- NOTE | 2017-10-14 09:10 | PN ---
DATE: 10/14/2017 SUBJECTIVE: Patient is feeling better. No current complaints. OBJECTIVE: VITAL SIGNS: Temperature 97.8, pulse 56, respirations 18, blood pressure 151/69, oxygen saturation 96% on room air. GENERAL: Well-developed, well-nourished female in no acute distress, sitting up in bed. LUNGS: Clear to auscultation bilaterally. HEART: Bradycardic, regular. ABDOMEN: Soft, nontender. EXTREMITIES: No erythema. Trace edema to the left distal foot. No drainage. IMPRESSION: 1. Osteomyelitis with cellulitis/systemic inflammatory response syndrome. Patient remains improved on IV antibiotics. The patient was reluctant to do a PICC line, but this is the best option for he aling in light of her failure of Zyvox in oxygen the past. We will try to arrange for PICC line gelacio cement today as well as home IV antibiotics as patient does not want to spend the next 6 weeks in a senior living facility. We will have case management worked with the patient on this. 2. Diabetes remains stable. Continue with current meds and sliding scale. 3. Hypertension, stable. Continue medications and diet. 4. Acute on chronic renal insufficiency. Remains stable. Continue to follow. Check creatinine to [place]. Dictated By: BIBI SIMMS MD SR/EVI Conf#: [id number] DID#: [id number]
--- NOTE | 2017-10-14 11:47 | RADRPT ---
PROCEDURE: XR Chest. CLINICAL INDICATION: Check PICC line position. TECHNIQUE: Single frontal view. COMPARISON: 07/25/2015. FINDINGS: There is a left arm PICC line with the tip in the lower superior vena cava. The lungs are clear. The heart size is normal. There is no pleural effusion. There is no pneumothorax. IMPRESSION: 1. Left arm PICC line tip in satisfactory position. 2. Otherwise normal chest radiograph. RPTAT: QQ .Aric Grullon MD, MD Date Time Electronically viewed and signed by .Aric Grullon MD, MD on 10/14/2017 11:46 .R/
--- NOTE | 2017-10-14 12:04 | RADRPT ---
PROCEDURE: US guidance for PICC line CLINICAL INDICATION: PICC line placement TECHNIQUE: Multiple real-time images were acquired of the patient's arm utilizing a high resolutio n transducer. This was performed by the PICC line nurse for venous access. COMPARISON: None FINDINGS: Ultrasound guidance for PICC line placement. IMPRESSION: Ultrasound guidance for PICC line placement. RPTAT: AA .Jean Marie Briseno MD, MD Date Time Electronically viewed and signed by .Jean Marie Briseno MD, on 10/14/2017 12:04 .S/
--- NOTE | 2017-10-14 14:26 | CONS ---
Date/Time of Note Date/Time of Note DATE: 10/14/17 TIME: 14:25 Assessment/Plan Assessment/Plan Chief Complaint/Hosp Course SUBJECTIVE: No acute changes. Patient is awake, looks comfortable, no fevers ANTIMICROBIALS: 1. Vancomycin. 2. Rocephin. DIAGNOSTICS: MRI of left foot revealed osteomyelitis, acute on chronic, as well as a large joint effusion. PHYSICAL EXAMINATION: GENERAL: This is a well-nourished, well-developed elderly woman who is alert, in no distress. HEENT: Head atraumatic, normocephalic. Sclerae anicteric. Buccal mucosa pink. NECK: Supple. CHEST: Rise symmetrical. Breath sounds clear. HEART: S1, S2. ABDOMEN: Soft. Bowel sounds present. EXTREMITIES: Without cyanosis. Left foot dressing intact. ASSESSMENT: 1. Left foot cellulitis, osteomyelitis with [facility] grew staph species. 2. Diabetes with diabetic neuropathy. 3. Hypertension. 4. History of nephrectomy for donor kidney for the sister. 5. ALLERGY TO SULFA. PLAN: Remains stable. Continue antibiotics for 6-8 weeks, follow with podiatry , pending PICC line Discussed with staff Problems: Consultation Date/Type/Reason Admit Date/Time Oct 08, 2017 at 17:26 Initial Consult Date 10/10/17 Type of Consultation: ID Exam/Review of Systems Vital Signs Vitals Vital Signs Date Time Temp Pulse Resp B/P Pulse Ox O2 Delivery O2 Flow Rate FiO2 10/14/17 08:06 98.1 68 16 119/70 96 10/12/17 02:50 Room Air Intake and Output 10/13/17 10/13/17 10/14/17 14:59 22:59 06:59 Intake Total 1110 ml 390 ml Output Total 800 ml 1000 ml Balance 310 ml -610 ml Results Result Diagram: 10/13/17 0536 10/13/17 0536 Results 24 hrs Laboratory Tests Test 10/13/17 17:14 10/13/17 20:33 10/14/17 08:12 10/14/17 12:36 Bedside Glucose 83 169 108 133 Medications Medications Current Medications Bupropion HCl (Wellbutrin Xl) 150 mg DAILY PO Last administered on 10/14/17t 08:11; Admin Dose 150 MG; Start 10/09/17 at 09:00 Losartan Potassium (Cozaar) 50 mg DAILY PO Last administered on 10/14/17 08: 11; Admin Dose 50 MG; Start 10/09/17 at 09:00 Atorvastatin Calcium (Lipitor) 10 mg QPM PO Last administered on 10/13/17 20: 31; Admin Dose 10 MG; Start 10/08/17 at 21:00 Diagnostic Test (Pha) (Accu-Chek) 1 ea 02 XX ; Start 10/09/17 at 02:00 Acetaminophen/ Hydrocodone Bitart (Hurst (5/325)) 1 tab Q4H PRN PO PAIN LEVEL 6 -10 Last administered on 10/10/17 19:30; Admin Dose 1 TAB; Start 10/08/17 at 18:30 Hydralazine HCl (Apresoline) 5 mg Q6H PRN IV SBP>180 OR DBP>100; Start at 18:30 Acetaminophen (Tylenol Tab) 650 mg Q6 PRN PO PAIN OR TEMP ABOVE 38C Last administered on 10/09/17 14:02; Admin Dose 650 MG; Start 10/08/17 at 18:30 Miscellaneous Information 1 ea NOTE XX ; Start 10/08/17 at 19:30 Glucose (Glutose) 15 gm Q15M PRN PO DECREASED GLUCOSE; Start 10/08/17 at 19:30 Glucose (Glutose) 22.5 gm Q15M PRN PO DECREASED GLUCOSE; Start 10/08/17 at 19: 30 Dextrose (D50w Syringe) 25 ml Q15M PRN IV DECREASED GLUCOSE; Start 10/08/17 at 19:30 Dextrose (D50w Syringe) 50 ml Q15M PRN IV DECREASED GLUCOSE; Start 10/08/17 at 19:30 Glucagon (Glucagen) 1 mg Q15M PRN IM DECREASED GLUCOSE; Start 10/08/17 at 19: 30 Glucose (Glutose) 15 gm Q15M PRN BUCCAL DECREASED GLUCOSE; Start 10/08/17 at 19:30 Gabapentin (Neurontin) 300 mg HS PO Last administered on 10/13/17 20:31; Admin Dose 300 MG; Start 10/09/17 at 21:00 Enoxaparin Sodium 85 mg 85 mg Q12 SC Last administered on 10/14/17 08:21; Admin Dose 85 MG; Start 10/10/17 at 21:00 Vancomycin HCl/ Dextrose/Water (Vancocin/D5W) 150 ml @ 75 mls/hr Q12H IVPB Last administered on 10/14/17t 12:36; Admin Dose 75 MLS/HR; Start 10/12/17 at 01:00 Miscellaneous Information (* Miscellaneous Pharmacy Order) OK FOR PHARMACY TO D... ONCE XX ; Start 10/11/17 at 21:00 IV Flush (NS 10 ml) 10 ml PRN PRN IV IV PROTOCOL; Start 10/14/17 at 12:30 PAULA ORELLANA PIGEON FANCIER Oct 14, 2017 14:26
[2017-10-14 14:50] VITALS: BP 142/66; RESP 16
[2017-10-14] MEDS ORDERED: CEFTRIAXONE 1 GM/50 ML (PMX) 50 ML IVPB SCH (16:00)
[2017-10-14] MEDS ORDERED: SOD CHLORIDE 0.9% 100 ML ONE (17:21)
[2017-10-14 19:14] VITALS: BP 147/74; RESP 17
[2017-10-14] MEDS: ATORVASTATIN 10 MG TAB PO SCH (20:42)
[2017-10-14] MEDS: GABAPENTIN 300 MG CAP PO SCH (20:42)
[2017-10-15 01:26] VITALS: BP_SYST 134; BP_SYST 139; BP_DIAS 82; RESP 16
[2017-10-15 05:50] LABS: BASOPHIL # 0.1 10^3/ul (0.0-0.1); BASOPHILS % 1.2 % (0.0-2.0); EOSINOPHILS # 0.2 10^3/ul (0.0-0.5); HEMATOCRIT 33.9 % (37.0-47.0); HEMOGLOBIN 10.7 g/dl (12.0-16.0); LYMPHOCYTES # 1.5 10^3/ul (0.8-2.9); MEAN CORPUSCULAR HEMOGLOBIN 26.5 pg (29.0-33.0); MEAN CORPUSCULAR HGB CONC 31.6 g/dl (32.0-37.0); MEAN CORPUSCULAR VOLUME 83.9 fl (82.0-101.0); MEAN PLATELET VOLUME 11.9 fl (7.4-10.4); MONOCYTE # 0.6 10^3/ul (0.3-0.9); NEUTROPHIL # 3.6 10^3/ul (1.6-7.5); NEUTROPHILS % 60.5 % (39.0-77.0); PLATELET COUNT 135 10^3/UL (140-415); RED BLOOD COUNT 4.04 10^6/ul (4.20-5.40); RED CELL DISTRIBUTION WIDTH 13.4 % (11.5-14.5); WHITE BLOOD COUNT 5.9 10^3/ul (4.8-10.8)
[2017-10-15 06:17] LABS: CALCIUM 10.5 mg/dl (8.4-10.2); CREATININE 0.78 mg/dl (0.44-1.00)
[2017-10-15 07:36] VITALS: BP 104/58; RESP 19
--- NOTE | 2017-10-15 07:58 | PDOCDIS ---
Discharge Instructions DIAGNOSIS Discharge Diagnosis osteomyelitis and cellulitis left foot CONDITION Patient Condition: Good HOME CARE INSTRUCTIONS: Special Diet: Carb Controlled ACTIVITY: Activity Restrictions: Slowly Increase Activity FOLLOW UP/APPOINTMENTS Follow-up Plan follow up with Dr. Davis in 2wks and follow up with [facility] next wk; call for appts BIBI DAVIS MD- Oct 15, 2017 07:58
[2017-10-15] MEDS ORDERED: Vancomycin Iv Per Pharmacy XX (07:59)
[2017-10-15] MEDS: INSULIN ASPART [NOVOLOG] 3 ML PEN SC SCH (08:15)
[2017-10-15] MEDS: BUPROPION (XL) 150 MG TAB PO SCH (08:20)
[2017-10-15] MEDS: LOSARTAN 50 MG TAB PO SCH (08:21)
--- NOTE | 2017-10-15 08:22 | PN ---
DATE: 10/15/2017 SUBJECTIVE: Patient is feeling well without complaints. OBJECTIVE: VITAL SIGNS: Temperature 97.7, pulse 57, respirations 19, blood pressure 104/58, oxygen saturation 94% on room air. GENERAL: Well-developed, well-nourished female in no acute distress. LUNGS: Clear to auscultation bilaterally. HEART: Bradycardic but regular. ABDOMEN: Soft, nontender, mild obesity. EXTREMITIES: Trace edema, left foot with no erythema, no tenderness, no drainage. LABORATORY DATA: White blood cell count 5.9, hemoglobin 10.7, hematocrit 33.9, platelets 135, creat inine 0.78, BUN of 20. Sodium 144, potassium 4.0, chloride 109, bicarbonate 28, calcium 10.5. ASSESSMENT AND PLAN: 1. Cellulitis with osteomyelitis, diabetic foot ulcer of the left foot, improved. Patient is stabl e for discharge home on vancomycin for the next 6 weeks. Patient will receive IV antibiotics with f ollowing vancomycin levels as well as kidney function throughout the course of therapy. The patient will have PICC line and PICC line care and home health to provide this. 2. Diabetes remains stable on Januvia alone without the metformin will continue off metformin and h ave the patient check her blood sugars and restart if needed. 3. Hypertension. We will continue the patient's medications and diet. 4. Depression. Continue with patient's medications. 5. Diabetic neuropathy. Will continue with patient's gabapentin. Dictated By: BIBI SIMMS MD SR/EVI Conf#: [id number] DID#: [id number]
[2017-10-15] MEDS: ENOXAPARIN 100 MG/ML SYG SC SCH (08:23)
--- NOTE | 2017-10-15 08:37 | DS ---
DATE OF ADMISSION: 10/08/2017 DATE OF DISCHARGE: 10/15/2017 ADMITTING DIAGNOSIS: Cellulitis of the left foot. DISCHARGE DIAGNOSES: Osteomyelitis of left foot with cellulitis, diabetic foot ulcer. SECONDARY DIAGNOSES: 1. Type 2 diabetes. 2. Diabetic neuropathy. 3. Hypertension. 4. Major depression. 5. Acute on chronic renal insufficiency. CONSULTATIONS: With Dr. Montoya from infectious disease. Dr. Angelo [facility]errero [facility]. PROCEDURES: PICC line placement and MRI of the left foot. MRI of the left foot showed osteomyeliti s involving the mid to distal third metatarsal with periosteal thickening suggestive of acute on chr onic, dislocation of the third proximal phalanx base, dislocation of the second metatarsophalangeal joint with no evidence of osteomyelitis. HOSPITAL COURSE: The patient is a 72-year-old female with type 2 diabetes, diabetic neuro aydin, hypertension, admitted for possible cellulitis and osteomyelitis. The patient was found to h ave osteomyelitis by MRI and was placed on vancomycin and ceftriaxone. The patient improved on anti biotics and cultures done through the wound care clinic showed coag negative Staph as well as Coryne bacterium species sensitive to vancomycin on all accounts. The patient has done well without any fu rther problems and will be continued on IV antibiotics for at least 6 weeks with home health. DISCHARGE MEDICATIONS: Will be: 1. Vancomycin IV for the next 6 weeks. 2. Losartan/hydrochlorothiazide 50/12.5 one daily. 3. Januvia 100 mg daily. 4. Wellbutrin XL 150 mg daily. 5. Gabapentin 300 mg at bedtime. 6. Pravastatin 20 mg daily. DISCHARGE PLANS: The patient will follow up with Dr. Davis within 2 weeks of discharge. The patien t will follow up with [facility] next week as well as home health for the next 6 w eeks with IV antibiotics and PICC line care. Dictated By: BIBI DAVIS MD SR/NTS Conf#: [id number] DID#: [id number]
[2017-10-15] MEDS ORDERED: VANCOMYCIN 750 MG in DEXTROSE 5% 150 ML IVPB SCH (10:00)
--- NOTE | 2017-10-15 13:02 | CONS ---
DATE OF ADMISSION: 10/08/2017 DATE OF CONSULTATION: 10/15/2017 VASCULAR SURGERY CONSULTATION Dear Doctors: Ms. Wu is a 72-year-old female who presented to emergency room at [facility] to having a left lower extremity diabetic foot infection with drainage from a callus between her second and third toe. It seems the patient has been doing well during her inpatient status with receiving IV antibiotics and keeping her legs elevated. Vascular surgery consultation was obtained as patient has Charcot foot and for evaluation of left lower extremity perfusion. At the moment, t he patient denies shortness of breath, chest pain, nausea, vomiting, fever or chills. The patient i s quite ambulatory and walks about 2 miles day. REVIEW OF SYSTEMS: A 14-point review performed and negative except what is mentioned in the HPI. PAST MEDICAL HISTORY: Entails diabetic type 2, diabetic neuropathy, major depression, hyperlipidemi a, hypertension and obesity with BMI of 28.7. PAST SURGICAL HISTORY: Status post left foot surgery, nephrectomy as a donor for her sister, cholec ystectomy, total abdominal hysterectomy, tonsillectomy and adenoidectomy, multiple hammertoe surgeri es of the right foot and a ventral hernia repair. FAMILY HISTORY: Sister with endstage renal disease. Mother of respiratory issues and father, brain tumor. ALLERGIES: SULFA MEDICATIONS. SOCIAL HISTORY: Denies tobacco, alcohol or illicit drug use. PHYSICAL EXAMINATION: GENERAL: Alert and oriented x3, no apparent distress. HEENT: Normocephalic, atraumatic. PERRLA, EOMI. Mucosa moist. NECK: Supple. No carotid bruit. PULMONARY: Clear to auscultation bilaterally. No crackles. CARDIOVASCULAR: S1, S2 present. No murmurs. ABDOMEN: Soft, nontender, nondistended. Bowel sounds positive. Truncal obesity. RIGHT LOWER EXTREMITY: Palpable femoral pulse, palpable pedal pulse. Motor, sensory intact. Charc ot foot with deformed toes. There is a callus between the second and third toe on the plantar aspec t of the foot. No drainage identified. It seems that there is surrounding erythema that has resolv ed now. No edema. LEFT LOWER EXTREMITY: Palpable femoral pulse, palpable pedal pulse. Motor, sensory intact. Cap re fill 2 to 3 seconds. ASSESSMENT AND PLAN: Bilateral lower extremity atherosclerosis with left lower extremity plantar ul cer: It seems the patient has some component of atherosclerotic disease; however, it does not seem that the patient has any flow-limiting stenosis as she does have a palpable pedal pulse. I presume that the patient's wound care with debridement of her callus and localized serial debridements as an outpatient will be adequate. We will recommend patient to continue with her appropriate antibiotic course per our medical team. Would recommend for the patient to have bilateral lower extremity arterial ultrasound for baseline e valuation. Discussed the patient's BMI and appropriate information was provided for the patient in regards to n utrition. Discussed findings, plan and management with the patient, she understands. Optimize vascular status (BP meds, diet, nutrition, exercise, sugar control, antiplatelets). Thank you for allowing us to partake in the care of your patient. Please call with any questions. Dictated By: STEVIE TO/EVI Conf#: [id number] DID#: [id number] CC: BIBI SIMMS MD;*EndCC*
[2017-10-15 13:58] VITALS: BP 112/78; RESP 18
--- NOTE | 2017-10-15 14:45 | CONS ---
Date/Time of Note Date/Time of Note DATE: 10/15/17 TIME: 14:44 Assessment/Plan Assessment/Plan Chief Complaint/Hosp Course SUBJECTIVE: Alert, feels good ANTIMICROBIALS: 1. Vancomycin. 2. Rocephin. DIAGNOSTICS: MRI of left foot revealed osteomyelitis, acute on chronic, as well as a large joint effusion. PHYSICAL EXAMINATION: GENERAL: This is a well-nourished, well-developed elderly woman who is alert, in no distress. HEENT: Head atraumatic, normocephalic. Sclerae anicteric. Buccal mucosa pink. NECK: Supple. CHEST: Rise symmetrical. Breath sounds clear. HEART: S1, S2. ABDOMEN: Soft. Bowel sounds present. EXTREMITIES: Without cyanosis. Left foot dressing intact. ASSESSMENT: 1. Left foot cellulitis, osteomyelitis with cultures at the [facility] grew staph species. 2. Diabetes with diabetic neuropathy. 3. Hypertension. 4. History of nephrectomy for donor kidney for the sister. 5. ALLERGY TO SULFA. PLAN: Remains stable. That is post PICC, pending discharge on current antibiotics for 6-8 weeks, patient to follow with podiatry Discussed with staff Problems: Consultation Date/Type/Reason Admit Date/Time Oct 08, 2017 at 17:26 Initial Consult Date 10/10/17 Type of Consultation: ID Exam/Review of Systems Vital Signs Vitals Vital Signs Date Time Temp Pulse Resp B/P Pulse Ox O2 Delivery O2 Flow Rate FiO2 10/15/17 07:36 97.7 57 19 104/58 94 10/12/17 02:50 Room Air Intake and Output 10/14/17 10/14/17 10/15/17 15:00 23:00 07:00 Intake Total 1680 ml 450 ml Output Total 1100 ml 600 ml Balance 580 ml -150 ml Results Result Diagram: 10/15/17 0524 10/15/17 0524 Results 24 hrs Laboratory Tests Test 10/14/17 17:15 10/14/17 20:44 10/15/17 05:24 10/15/17 07:56 Bedside Glucose 91 116 99 White Blood Count 5.9 Red Blood Count 4.04 L Hemoglobin 10.7 L Hematocrit 33.9 L Mean Corpuscular Volume 83.9 Mean Corpuscular Hemoglobin 26.5 L Mean Corpuscular Hemoglobin Concent 31.6 L Red Cell Distribution Width 13.4 Platelet Count 135 L Mean Platelet Volume 11.9 H Neutrophils % 60.5 Lymphocytes % 25.0 Monocytes % 10.0 Eosinophils % 3.0 Basophils % 1.2 Nucleated Red Blood Cells % 0.0 Neutrophils # 3.6 Lymphocytes # 1.5 Monocytes # 0.6 Eosinophils # 0.2 Basophils # 0.1 Nucleated Red Blood Cells # 0.0 Sodium Level 144 Potassium Level 4.0 Chloride Level 109 Carbon Dioxide Level 28 Anion Gap 11 Blood Urea Nitrogen 20 Creatinine 0.78 Glucose Level 109 Calcium Level 10.5 H Test 10/15/17 12:06 Bedside Glucose 152 APULA ORELLANA NP Oct 15, 2017 14:45
[2017-10-16] MEDS ORDERED: ENOXAPARIN 40 MG/0.4 ML SYG SC SCH (09:00)
== END 2017-10-15 13:40 | disposition home or self-care (01) | DRG 638 ==
LOC: E/R 14:57 → MS2 17:26
PROVIDERS: ADMIT Internal Medicine; ATTEND Internal Medicine
PROC: 02HV33Z Insertion of Infusion Device into Superior Vena Cava, Percutaneous Approach (ICD-10-PCS; principal; 2017-10-14)
DX: E11.69 Type 2 diabetes mellitus with other specified complication (principal); L03.116 Cellulitis of left lower limb; M86.172 Other acute osteomyelitis, left ankle and foot; E87.2 Acidosis; E11.22 Type 2 diabetes mellitus with diabetic chronic kidney disease; E11.40 Type 2 diabetes mellitus with diabetic neuropathy, unspecified; E11.621 Type 2 diabetes mellitus with foot ulcer; M86.672 Other chronic osteomyelitis, left ankle and foot; E11.628 Type 2 diabetes mellitus with other skin complications; I12.9 Hypertensive chronic kidney disease with stage 1 through stage 4 chronic kidney disease, or unspecified chronic kidney disease; N18.9 Chronic kidney disease, unspecified; F32.9 Major depressive disorder, single episode, unspecified; B95.7 Other staphylococcus as the cause of diseases classified elsewhere; E78.5 Hyperlipidemia, unspecified; D63.8 Anemia in other chronic diseases classified elsewhere; Z79.84 Long term (current) use of oral hypoglycemic drugs
CPT/HCPCS: 36415; 36569; 71010; 73718; 76937; 80048; 80053; 80202; 82565; 82607; 82746; 82962; 83036; 83540; 83605; 84443; 84484; 84520; 85025; 85610; 85651; 85730; 86140; 87040; 96374; 96375; J0692; J0696; J1650; J1815; J3370; J7030; J7050